=== PATIENT | male | born 1955 | race Caucasian/White ===

== ENCOUNTER → 2016-09-09 | Outpatient (CLI) | payer BC ==
--- NOTE | 2016-09-09 20:31 | MR ---
EXAMINATION TYPE: MR lumbar spine wo con DATE OF EXAM: 09/09/2016 8:19 PM COMPARISON: NONE HISTORY: Low back pain TECHNIQUE: Multiplanar, multisequence images of the lumbar spine were acquired. L1-L2: Central disc bulging with evidence of degenerative disc disease. There is mild left foraminal encroachment and [id number] right-sided foraminal encroachment. L2-L3: Degenerative disc disease with broad-based central and left paracentral disc protrusion. There is severe left-sided foraminal encroachment with probable nerve root impingement. Mild right-sided f oraminal encroachment. L3-L4: Degenerative disc disease with broad-based central disc bulging and mild effacement of thecal sac but no canal stenosis. Facet arthropathy and bilateral mild foraminal encroachment greater on the right. L4-L5: Severe degenerative disc disease with focal central broad-based disc herniation and moderate e ffacement of thecal sac. Moderate to severe bilateral foraminal encroachment greater on the right. Fa cet arthropathy contributes. L5-S1: Degenerative disc disease with broad-based central disc bulging. No canal stenosis. Bulging sl ightly greater paracentrally the left. Neural foramina remain patent facet arthropathy noted. Lumbar segments are intact. No paraspinal masses are identified. Conus medullaris has a normal appe arance. Scoliosis noted. IMPRESSION: 1. Multilevel degenerative disc disease and disc bulging with foraminal encroachment. Focal central b road-based disc herniation L4-L5 results in moderate canal stenosis and effacement of thecal sac and moderate to severe bilateral foraminal encroachment greater on the right. 2. Broad-based central and left paracentral disc protrusion L2-L3 with severe left-sided foraminal en croachment and probable nerve root impingement.
== END | disposition home or self-care (01) ==
LOC: RADMRIMAIN 19:36
PROVIDERS: ATTEND Orthopaedic Surgery Orthopaedic Surgery of the Spine
DX: M48.06 Spinal stenosis, lumbar region (principal); M51.26 Other intervertebral disc displacement, lumbar region
CPT/HCPCS: 72148

== ENCOUNTER → 2016-12-15 | Outpatient (CLI) | payer BC ==
--- NOTE | 2016-12-15 22:39 | MR ---
EXAMINATION TYPE: MR lumbar spine wo con DATE OF EXAM: 12/15/2016 9:40 PM COMPARISON: 09/09/2016 HISTORY: 61-year-old male with low back pain, radiates down both legs, fell out of bed TECHNIQUE: Multiplanar, multisequence images of the lumbar spine were acquired. FINDINGS: There is a dextroconvex scoliosis centered along the upper to mid lumbar spine. There is edematous M odic type I endplate change along the side of concavity at L2-L3 towards the left. Vertebral body heights are preserved. Degenerative grade 1 anterolisthesis at L4-L5 not significantly changed. Variable disc desiccation and bulging disks throughout. Moderate disc height loss especially at L4-L5 where fatty Modic type II endplate changes seen and also at L5-S1. No suspicious bone marrow replacement. Conus medullaris is normal. Facet arthropathy and ligamentum flavum thickening in the mid to lower lumbar spine with prominent do rsal epidural fat. At T12-L1, no spinal canal or neuroforaminal stenosis. At L1-L2, mild diffuse disc bulge with at least moderate right neuroforaminal stenosis, not significa ntly changed. Mild left neuroforaminal stenosis. Mild ventral impression on the thecal sac without si gnificant spinal canal stenosis. At L2-L3, there is diffuse disc bulge with hypertrophic facet arthropathy, ligamentum flavum thickeni ng, and prominent dorsal epidural fat. Changes result in similar moderate spinal canal stenosis with near complete CSF signal effacement, mild right and moderate to severe left neuroforaminal stenosis. This does not appear significantly changed. At L3-L4, there is diffuse disc bulge with ligamentum flavum thickening and facet arthropathy. Change s result in minimal bilateral inferior neuroforaminal narrowing without spinal canal stenosis. At L4-L5, grade when anterolisthesis with hypertrophic facet arthropathy, diffuse disc bulge with a b road-based posterior disc protrusion relatively similar prior. This impresses on the thecal sac witho ut significant spinal canal stenosis. There is similar moderate right and mild left neuroforaminal st enosis. At L5-S1, diffuse disc bulge with facet arthropathy. Changes result in mild left neuroforaminal steno sis without spinal canal stenosis. No prevertebral or paravertebral soft tissue abnormality. IMPRESSION: 1. Degenerative dextroconvex scoliosis centered along the upper to mid lumbar spine. There is edemato us Modic type I endplate change towards the left at L2-L3 which appears increased from 09/09/2016. 2. Similar degenerative grade 1 anterolisthesis at L4-L5. 3. Moderate degenerative disc disease throughout with hypertrophic facet arthropathy and ligamentum f lavum thickening. 4. There is similar moderate spinal canal stenosis at L2-L3 with near complete effacement of CSF sign al and moderate to severe left neuroforaminal stenosis at this level. 5. At L4-L5, there is similar moderate right neuroforaminal stenosis and mild on the left at L5-S1.
== END | disposition home or self-care (01) ==
LOC: RADMRIMAIN 20:36
PROVIDERS: ATTEND Internal Medicine
DX: M48.07 Spinal stenosis, lumbosacral region (principal); M99.73 Connective tissue and disc stenosis of intervertebral foramina of lumbar region; M99.74 Connective tissue and disc stenosis of intervertebral foramina of sacral region; M51.36 Other intervertebral disc degeneration, lumbar region; M46.97 Unspecified inflammatory spondylopathy, lumbosacral region; M24.28 Disorder of ligament, vertebrae; M41.86 Other forms of scoliosis, lumbar region
CPT/HCPCS: 72148

== ENCOUNTER → 2018-05-26 | Outpatient (CLI) | payer MEDICARE, BC ==
--- NOTE | 2018-05-26 07:21 | MR ---
EXAMINATION TYPE: MR lumbar spine wo con DATE OF EXAM: 05/26/2018 COMPARISON: MRI lumbar spine December 15, 2016. HISTORY: disc displacement lumbar region per order. Extreme low back pain, scoliosis, and spinal sten osis for 15 years causing pain into left thigh per patient. TECHNIQUE: Multiplanar, multisequence imaging of the lumbar spine is performed without IV contrast. FINDINGS: Survey images redemonstrate dextroconvex scoliosis centered in the mid to lower cervical sp ine with partial visualization of levoconvex scoliosis centered in the lower thoracic spine. Sagittal images of the lumbar spine show vertebral body heights to remain satisfactory. Multilevel disc desic cation is redemonstrated. There is moderate to advanced disc space narrowing with heterogeneous endpl ate changes L4-L5 level redemonstrated. Heterogeneous endplate changes left L2-L3 level with mild to moderate disc space narrowing is redemonstrated. There is moderate disc space narrowing L5-S1 level r edemonstrated. Posterior disc herniations are again seen at these levels on sagittal images. The conu s medullaris remains normal in position and signal ending mid L1 level. Axial images show the T12-L1 level to remain within normal limits. Axial images at the L1-L2 level show mild broad disc bulge and mild facet degenerative changes bilate rally. There is mild effacement of the anterior thecal sac. There is mild right-sided anterior inferi or neural foraminal narrowing. Left-sided neural foramen is patent. Axial images at the L2-L3 level show mild/moderate broad based posterior disc protrusion mildly effac ing anterior thecal sac with mild to moderate facet degenerative changes and ligamentum flavum hypert rophy mildly effacing posterior lateral thecal sac. There is mild to moderate bilateral neural forami nal narrowing, left greater than right redemonstrated. Axial images at the L3-L4 level show mild to moderate broad disc bulge. There is mild to minimal face t degenerative changes and ligament flavum hypertrophy. There is minimal effacement of the anterior t hecal sac. Bilateral neural foramina are patent. No significant change from prior. Axial images at the L4-L5 level show moderate facet degenerative changes bilaterally. There is broad disc bulge with central disc protrusion component effacing anterior thecal sac. There is moderate to severe right and mild to moderate left-sided neural foraminal narrowing. No significant change from p rior. Axial images at the L5-S1 level show broad-based central disc protrusion minimally effacing anterior thecal sac as there is increased epidural fat prominence. There is mild to borderline moderate facet degenerative changes bilaterally. There is stable mild left-sided neural foraminal narrowing. Right-s ided neural foramen is patent. No significant change from prior. No suspicious retroperitoneal findings are seen. IMPRESSION: Redemonstration of scoliosis and multilevel degenerative changes most prominent at L2-L3 and L4-L5 levels with further details as noted above. No significant change or progression from most recent MRI noted
== END ==
LOC: RADMRIMAIN 06:08
PROVIDERS: ATTEND Internal Medicine
DX: M47.817 Spondylosis without myelopathy or radiculopathy, lumbosacral region (principal); M99.74 Connective tissue and disc stenosis of intervertebral foramina of sacral region; M51.27 Other intervertebral disc displacement, lumbosacral region; M48.07 Spinal stenosis, lumbosacral region; M41.86 Other forms of scoliosis, lumbar region
CPT/HCPCS: 72148

== ENCOUNTER → 2018-07-23 | Outpatient (CLI) | payer MEDICARE, BC ==
--- NOTE | 2018-07-23 17:37 | CT ---
EXAMINATION TYPE: CT ChestAbdPelvis w con DATE OF EXAM: 07/23/2018 COMPARISON: None HISTORY: abnormal weight loss. Hx heart disease, HTN, COPD CT DLP: 1233 mGycm. Automated Exposure Control for Dose Reduction was Utilized. CONTRAST: CT scan of the thorax, abdomen and pelvis is performed with IV Contrast, patient injected with 100 mL of Isovue 300. FINDINGS: LUNGS: The lungs are grossly clear, there is no concerning parenchymal mass or nodule identified. T here is no pleural effusion or pneumothorax seen. The tracheobronchial tree is patent. MEDIASTINUM: There are no greater than 1 cm hilar or mediastinal lymph nodes. No cardiomegaly or pe ricardial effusion is seen. There is suspected coronary artery stent in the RCA distribution. There is calcified plaque proximal LAD axial image 29, the findings consistent with underlying coronary art марина disease. ASD repair device noted axial image 34. OTHER: Small degree of bilateral retroareolar gynecomastia is noted. LIVER/GB: No significant abnormality is appreciated. PANCREAS: No significant abnormality is seen. SPLEEN: No significant abnormality is seen. ADRENALS: No significant abnormality is seen. KIDNEYS: No significant abnormality is seen. BOWEL: [place] contrast does not reach level of ileum making evaluation of distal bowel suboptimal. No suspicious small or large bowel dilatation is however seen GENITAL ORGANS: No gross abnormality seen. LYMPH NODES: No greater than 1cm abdominal or pelvic lymph nodes are appreciated. OSSEOUS STRUCTURES: Metallic hardware from reverse right shoulder arthroplasty is noted causing strea k artifact limiting evaluation at this level. Thoracolumbar spine shows underlying scoliosis. There i s moderate disc space narrowing L4-L5 level OTHER: There is mild/moderate calcified plaque seen in ectatic infrarenal abdominal aorta.. IMPRESSION: No worrisome mass or adenopathy is seen to suggest neoplasm.
== END | disposition home or self-care (01) ==
LOC: RADCTMAIN 14:24
PROVIDERS: ATTEND Internal Medicine
DX: R63.4 Abnormal weight loss (principal)
CPT/HCPCS: 82565; 84520; 71260; 74177; 36415; Q9967

== ENCOUNTER → 2019-02-25 | Outpatient (CLI) | payer MEDICARE, OTHER ==
--- NOTE | 2019-02-26 21:17 | MR ---
EXAMINATION TYPE: MR thoracic spine wo con DATE OF EXAM: 02/25/2019 COMPARISON: MRI of the lumbar spine dated 05/26/2018 HISTORY: Pain in thoracic spine TECHNIQUE: Multiplanar, multisequence images of the thoracic spine were acquired without intravenous contrast pe r department protocol. FINDINGS: There is a mild levoscoliosis of the thoracic spine. The thoracic spinal cord appears withi n normal limits. There is epidural lipomatosis seen of the thoracic level. At T10 there is predominantly endplate T1/T2 hypointensity. At T11 there is T2 hyperintensity that is focal however there is no corresponding T1 hypointensity to suggest bone marrow edema and there is m otion artifact on the axial images suggesting that this is artifactual. Multilevel disc desiccation i s seen. Multilevel anterior osteophytes and mild facet arthropathy are also present. At T1-T2 there is disc desiccation without spinal canal stenosis nor neural foraminal narrowing. At T2-T3 there is a small right eccentric disc bulge without spinal canal stenosis nor neural foramin al narrowing. At T3-T4 there is a small right paracentral disc herniation without spinal canal stenosis nor signifi cant neural foraminal narrowing. At T4-T5 there is disc desiccation without spinal canal stenosis or neural foraminal narrowing. At T5-T6 there is also disc desiccation without spinal canal stenosis or neural foraminal narrowing. At T6-T7 there is a very small central disc herniation without spinal canal stenosis nor neural justyna inal narrowing. At T7-T8 there is disc desiccation without spinal canal stenosis nor neural foraminal narrowing. At T8-T9 there is disc desiccation without spinal canal stenosis nor neural foraminal narrowing. At T9-T10 there is a small right paracentral disc herniation creating mild right neural foraminal odilia rowing. No left neural foraminal narrowing or spinal canal stenosis. At T10-T11 there is a small right paracentral disc herniation without spinal canal stenosis nor neura l foraminal narrowing. At T11-T12 there is a broad-based disc bulge and minimal facet arthropathy without spinal canal steno sis nor neural foraminal narrowing. IMPRESSION: 1. Multilevel mild degenerative disc disease of the thoracic spine with discogenic endplate changes a t T10. No vertebral body height loss or malalignment. 2. There appears to be artifact at the T11 vertebral body simulating bone marrow edema. There is foca l tenderness nuclear medicine bone scan could be performed. 3. Small right paracentral disc herniations at T3-T4, T9-T10 and T10-T11 without spinal canal stenosi s. There is mild right neural foraminal narrowing at T9-T10. 4. Very small central disc herniation at T6-T7 without spinal canal stenosis.
== END ==
LOC: RADMRIMAIN 13:29
PROVIDERS: ATTEND Internal Medicine
DX: M48.04 Spinal stenosis, thoracic region (principal); M51.24 Other intervertebral disc displacement, thoracic region; M51.34 Other intervertebral disc degeneration, thoracic region
CPT/HCPCS: 72146

== ENCOUNTER → 2019-08-18 | Outpatient (CLI) | payer MEDICARE, OTHER ==
--- NOTE | 2019-08-19 02:33 | MR ---
EXAMINATION TYPE: MR thoracic spine wo con DATE OF EXAM: 08/18/2019 COMPARISON: 02/17/2019 HISTORY: Chronic mid back pain Multiplanar multiecho imaging of the thoracic spine was performed with no contrast. There is a mild thoracic levoscoliosis. There is degenerative disc space narrowing throughout the tho racic spine. There is no compression significant deformity. There is 10% anterior wedging of T8 verte bra that appears old. Thoracic spinal cord has normal signal pattern. There is no sign of thoracic sp inal stenosis. Posterior elements are intact. There is no thoracic paraspinal mass. IMPRESSION: Mild levoscoliosis. Mild multilevel spondylotic changes throughout the thoracic spine with disc space narrowing and endplate spur formation. Spine appears not significantly different than last exam. No acute fracture seen. Stable mild anterior wedging of T8 vertebra. No spinal stenosis.
== END ==
LOC: RADMRIMAIN 16:02
PROVIDERS: ATTEND Internal Medicine
DX: M48.04 Spinal stenosis, thoracic region (principal); M48.54XA Collapsed vertebra, not elsewhere classified, thoracic region, initial encounter for fracture; M41.84 Other forms of scoliosis, thoracic region; M47.814 Spondylosis without myelopathy or radiculopathy, thoracic region
CPT/HCPCS: 72146

== ENCOUNTER → 2020-02-06 | Outpatient (CLI) | payer MEDICARE, OTHER ==
--- NOTE | 2020-02-07 16:13 | MR ---
EXAMINATION TYPE: MR tspine/lspine wo con DATE OF EXAM: 02/06/2020 COMPARISON: MR thoracic spine 08/18/2019, MR lumbar spine 05/26/2018 HISTORY: Degeneration of lumbar spine, pain in thoracic spine TECHNIQUE: Multiplanar, multisequence imaging of the thoracic and lumbar spine is performed without I V contrast. FINDINGS: Thoracic spine MRI: There is a spinal curvature. Multilevel spondylosis is again seen. There is no ev ident spinal stenosis or significant foraminal encroachment. Thoracic cord signal is maintained. Ther e is multilevel spondylosis. Endplate discogenic marrow signal changes are present, loss of disc heig ht signal present at the intervertebral levels. Small posterior disc bulges are again noted causing m inimal anterior mass effect on the thecal sac at multiple levels. Multilevel Schmorl's node formation . IMPRESSION: Stable degenerative disc disease, spinal curvature. Lumbar spine MRI: There is multilevel spondylosis as on prior exam. Loss of disc height and signal is present with associated vacuum phenomenon L4-5, L5-S1, L2-3. Multilevel spondylosis with endplate di scogenic marrow signal changes are again seen. The conus is at T12-L1 shows an unremarkable appearanc e. L5-S1 shows a posterior disc herniation causing anterior mass effect on the thecal sac and likely con tact with the proximal S1 nerve root left greater than right. No significant spinal stenosis or justyna inal encroachment. L4-5 shows a posterior central disc herniation similar to prior exam causing anterior mass effect on the thecal sac. There is facet arthropathy change. Circumferential extension endplate disc complex re sults in foraminal encroachment bilaterally. L3-4 shows a stable appearance with posterior broad-based disc bulge. No significant central stenosis or foraminal encroachment. L2-3: Posterior broad-based disc bulge causes anterior mass effect on the thecal sac, no significant spinal stenosis. Hypertrophic changes are present at the facets. Foraminal encroachment is present on the left, there is lateral extension endplate disc complex. L1-2: Posterior broad-based disc bulge causes mild anterior mass effect on the thecal sac. No signifi cant foraminal encroachment or central stenosis. IMPRESSION: Stable degenerative disc disease, disc herniations, facet arthropathy. Scoliosis. IMPRESSION: Negative MRI of the lumbar spine.
== END | disposition home or self-care (01) ==
LOC: RADMRIMAIN 19:09
PROVIDERS: ATTEND Internal Medicine
DX: M51.36 Other intervertebral disc degeneration, lumbar region (principal)
CPT/HCPCS: 72146; 72148

== ENCOUNTER 2021-09-03 01:32 | Emergency (ER) | payer MEDICARE ==
[2021-09-03 01:45] VITALS: RESP 18; TEMP 98.7
[2021-09-03 02:04] LABS: Glucose,Whole Blood 88 mg/dL (75-99)
[2021-09-03 02:13] LABS: Basophils # (A) 0.1 k/uL (0-0.2); Basophils % (A) 1 %; Eosinophils # (A) 0.4 k/uL (0-0.7); Eosinophils % (A) 6 %; HCT 42.5 % (39.0-53.0); HGB 13.4 gm/dL (13.0-17.5); Hypochromasia Slight; Lymphocytes % (A) 30 %; MCH 29.3 pg (25.0-35.0); MCHC 31.6 g/dL (31.0-37.0); MCV 92.6 fL (80.0-100.0); Mean Platelet Volume 7.3; Monocytes # (A) 0.4 k/uL (0-1.0); Monocytes % (A) 6 %; Neutrophils # (A) 3.5 k/uL (1.3-7.7); Neutrophils % (A) 54 %; Platelet Count 227 k/uL (150-450); RBC 4.59 m/uL (4.30-5.90); RDW 14.4 % (11.5-15.5); WBC 6.6 k/uL (3.8-10.6)
[2021-09-03 02:23] LABS: Albumin 4.5 g/dL (3.5-5.0); Potassium 4.3 mmol/L (3.5-5.1); Total Bilirubin 0.7 mg/dL (0.2-1.3); Total Protein 7.2 g/dL (6.3-8.2)
--- NOTE | 2021-09-03 02:26 | CT ---
EXAMINATION TYPE: CT brain wo con for TPA DATE OF EXAM: 09/03/2021 COMPARISON: 04/30/2011 HISTORY: AMS CT DLP: 1121.40 mGycm Automated exposure control for dose reduction was used. There is some cerebral atrophy. There is no mass effect or midline shift. There is no sign of intracr anial hemorrhage. Calvarium is intact. Skull base is intact. IMPRESSION: Mild atrophy. No acute intracranial abnormality.
--- NOTE | 2021-09-03 02:29 | XR ---
EXAMINATION TYPE: XR chest 1V DATE OF EXAM: 09/03/2021 COMPARISON: 10/10/2012 HISTORY: Altered mental status TECHNIQUE: Single view FINDINGS: There is no heart failure nor confluent pneumonic infiltrate. Costophrenic angles are clear . There is right shoulder prosthesis. Bony thorax is intact. IMPRESSION: No active cardiopulmonary disease. There is clearing of the interstitial pulmonary densit y compared to last exam.
[2021-09-03 02:31] LABS: Partial Thromboplastin Time 23.1 sec (22.0-30.0); Prothrombin Time 10.7 sec (9.0-12.0)
--- NOTE | 2021-09-03 03:03 | ED ---
General Adult HPI - General Chief complaint: Neuro Symptoms/Deficit Stated complaint: r/o TIA Time Seen by Provider: 09/03/21 01:48 Source: EMS Mode of arrival: EMS Limitations: no limitations - History of Present Illness Initial comments: This patient is a 65-year-old man brought to have evaluation after he became lost while driving. The patient could not recall where he was attempting to go nor why he was in the vehicle. He denies any headache, neurologic symptoms, chest pain or dyspnea. No fever or chills. The patient states that he feels pretty much as his usual self now, but is not able to recall why he was in the car where he was going -: hour(s) Severity scale (1-10): 0 Consistency: now resolved Improves with: none Worsens with: none Associated Symptoms: confusion Treatments Prior to Arrival: none - Related Data Home Medications Medication Instructions Recorded Confirmed ALPRAZolam [Xanax] 2 mg PO TID PRN 12/19/14 02/01/15 Ammonium Lactate Cream [Ammonium 1 applic TOPICAL DAILY 12/19/14 02/01/15 Lactate] Aspirin 81 mg PO DAILY 12/19/14 02/01/15 Clobetasol Propionate/Emoll 1 applic TOPICAL DAILY 12/19/14 02/01/15 [Temovate Emollient 0.05% Crm] Clopidogrel [Plavix] 75 mg PO DAILY 12/19/14 02/01/15 Esomeprazole Magnesium [NexIUM] 40 mg PO DAILY 12/19/14 02/01/15 HYDROcodone/APAP 10-325MG [[place] 1 each PO Q6H PRN 12/19/14 02/01/15 10] Ranolazine [Ranexa] 500 mg PO BID 12/19/14 02/01/15 Rosuvastatin Calcium [Crestor] 20 mg PO HS 12/19/14 02/01/15 Venlafaxine HCl ER [Effexor Xr] 150 mg PO DAILY 12/19/14 02/01/15 carvediloL [Coreg] 3.125 mg PO BID 12/19/14 02/01/15 lamoTRIgine [LaMICtal] 200 mg PO DAILY 12/19/14 02/01/15 lisinopriL [Zestril] 10 mg PO DAILY 12/19/14 02/01/15 Celecoxib [CeleBREX] 200 mg PO DAILY 12/25/14 02/01/15 Methocarbamol [Robaxin-750] 750 mg PO TID PRN 01/10/15 02/01/15 Nitroglycerin Sl Tabs [Nitrostat] 0.4 mg SUBLINGUAL DIRECTED PRN 01/10/15 02/01/15 Tamsulosin HCl [Flomax] 0.4 mg PO DAILY 01/30/15 02/01/15 Allergies Allergy/AdvReac Type Severity Reaction Status Date / Time No Known Allergies Allergy Verified 01/30/15 12:52 Review of Systems ROS Statement: Those systems with pertinent positive or pertinent negative responses have been documented in the HPI. ROS Other: All systems not noted in ROS Statement are negative. Constitutional: Denies: fever, chills, weakness Eyes: Denies: eye pain, vision change ENT: Denies: ear pain, congestion Respiratory: Denies: cough, dyspnea Cardiovascular: Denies: chest pain, palpitations, syncope Gastrointestinal: Denies: abdominal pain, vomiting, diarrhea Genitourinary: Denies: dysuria Musculoskeletal: Denies: back pain Skin: Denies: rash Neurological: Reports: as per HPI, confusion. Denies: headache, weakness, numbness, paresthesias Past Medical History Past Medical History: Coronary Artery Disease (CAD), Cancer, Heart Failure, COPD, CVA/TIA, GERD/Reflux, Hyperlipidemia, Hypertension, Myocardial Infarction ([place]), Musculoskeletal Disorder Additional Past Medical History / Comment(s): melanoma Last Myocardial Infarction Date:: 2012 History of Any Multi-Drug Resistant Organisms: None Reported Past Surgical History: Appendectomy, Heart Catheterization, Heart Catheterization With Stent, Tonsillectomy Past Anesthesia/Blood Transfusion Reactions: No Reported Reaction Date of Last Stent Placement:: 2012 Smoking Status: Current every day smoker Past Alcohol Use History: Rare Past Drug Use History: None Reported - Past Family History Mother Additional Family Medical History / Comment(s): Alzheimers disease General Exam General appearance: alert, in no apparent distress Head exam: Present: atraumatic, normocephalic Eye exam: Present: normal appearance. Absent: scleral icterus, conjunctival injection Neck exam: Present: normal inspection, full ROM. Absent: tenderness, meningismus Respiratory exam: Present: normal lung sounds bilaterally. Absent: respiratory distress, wheezes, rales, rhonchi, stridor Cardiovascular Exam: Present: regular rate, normal rhythm, normal heart sounds. Absent: systolic murmur, diastolic murmur, rubs, gallop GI/Abdominal exam: Present: soft. Absent: distended, tenderness, guarding, rebound, rigid, mass Extremities exam: Present: normal inspection, normal capillary refill. Absent: pedal edema, calf tenderness Back exam: Present: normal inspection. Absent: CVA tenderness (R), CVA tenderness (L) Neurological exam: Present: alert, oriented X3, CN II-XII intact. Absent: motor sensory deficit Psychiatric exam: Absent: depressed, suicidal ideation Skin exam: Present: warm, dry, intact, normal color. Absent: rash Course Vital Signs 09/03/21 09/03/21 01:33 03:53 Temperature 98.7 F Pulse Rate 82 84 Respiratory 18 18 Rate Blood Pressure 177/99 140/84 O2 Sat by Pulse 99 96 Oximetry Medical Decision Making - Medical Decision Making Patient is 65-year-old man here for evaluation after what is consistent with transient global ischemia. The patient does appear to be at his baseline now. His neurologic exam unremarkable. He would like to go home. Discussed appropriate further care and follow-up. - Lab Data Result diagrams: 09/03/21 01:49 09/03/21 01:49 Lab Results 09/03/21 09/03/21 09/03/21 Range/Units 01:49 01:49 01:49 WBC 6.6 (3.8-10.6) k/uL RBC 4.59 (4.30-5.90) m/uL Hgb 13.4 (13.0-17.5) gm/dL Hct 42.5 (39.0-53.0) % MCV 92.6 (80.0-100.0) fL MCH 29.3 (25.0-35.0) pg MCHC 31.6 (31.0-37.0) g/dL RDW 14.4 (11.5-15.5) % Plt Count 227 (150-450) k/uL MPV 7.3 Neutrophils % 54 % Lymphocytes % 30 % Monocytes % 6 % Eosinophils % 6 % Basophils % 1 % Neutrophils # 3.5 (1.3-7.7) k/uL Lymphocytes # 2.0 (1.0-4.8) k/uL Monocytes # 0.4 (0-1.0) k/uL Eosinophils # 0.4 (0-0.7) k/uL Basophils # 0.1 (0-0.2) k/uL Hypochromasia Slight PT 10.7 (9.0-12.0) sec INR 1.0 (<1.2) APTT 23.1 (22.0-30.0) sec Sodium 138 (137-145) mmol/L Potassium 4.3 (3.5-5.1) mmol/L Chloride 107 (98-107) mmol/L Carbon Dioxide 20 L (22-30) mmol/L Anion Gap 11 mmol/L BUN 21 H (9-20) mg/dL Creatinine 1.05 (0.66-1.25) mg/dL Est GFR (CKD-EPI)AfAm 88 (>60 ml/min/1.73 sqM) Est GFR (CKD-EPI)NonAf 76 (>60 ml/min/1.73 sqM) Glucose 95 (74-99) mg/dL POC Glucose (mg/dL) (75-99) mg/dL POC Glu Fire Prevention Engineer ID Calcium 10.0 (8.4-10.2) mg/dL Total Bilirubin 0.7 (0.2-1.3) mg/dL AST 17 (17-59) U/L ALT 10 (4-49) U/L Alkaline Phosphatase 64 (38-126) U/L Troponin I (0.000-0.034) ng/mL Total Protein 7.2 (6.3-8.2) g/dL Albumin 4.5 (3.5-5.0) g/dL 09/03/21 09/03/21 Range/Units 01:49 02:03 WBC (3.8-10.6) k/uL RBC (4.30-5.90) m/uL Hgb (13.0-17.5) gm/dL Hct (39.0-53.0) % MCV (80.0-100.0) fL MCH (25.0-35.0) pg MCHC (31.0-37.0) g/dL RDW (11.5-15.5) % Plt Count (150-450) k/uL MPV Neutrophils % % Lymphocytes % % Monocytes % % Eosinophils % % Basophils % % Neutrophils # (1.3-7.7) k/uL Lymphocytes # (1.0-4.8) k/uL Monocytes # (0-1.0) k/uL Eosinophils # (0-0.7) k/uL Basophils # (0-0.2) k/uL Hypochromasia PT (9.0-12.0) sec INR (<1.2) APTT (22.0-30.0) sec Sodium (137-145) mmol/L Potassium (3.5-5.1) mmol/L Chloride (98-107) mmol/L Carbon Dioxide (22-30) mmol/L Anion Gap mmol/L BUN (9-20) mg/dL Creatinine (0.66-1.25) mg/dL Est GFR (CKD-EPI)AfAm (>60 ml/min/1.73 sqM) Est GFR (CKD-EPI)NonAf (>60 ml/min/1.73 sqM) Glucose (74-99) mg/dL POC Glucose (mg/dL) 88 (75-99) mg/dL POC Glu Fire Prevention Engineer ID Willing, Yu Calcium (8.4-10.2) mg/dL Total Bilirubin (0.2-1.3) mg/dL AST (17-59) U/L ALT (4-49) U/L Alkaline Phosphatase (38-126) U/L Troponin I <0.012 (0.000-0.034) ng/mL Total Protein (6.3-8.2) g/dL Albumin (3.5-5.0) g/dL Disposition Clinical Impression: TGA (transient global amnesia) Disposition: HOME SELF-CARE Condition: Good Instructions (If sedation given, give patient instructions): Transient Global Amnesia (ED) Is patient prescribed a controlled substance at d/c from ED?: No Referrals: Subha Looney MD [Primary Care Provider] - 1-2 days
[2021-09-03 03:54] VITALS: BP 140/84; PULSE 84
== END 2021-09-03 04:20 | disposition home or self-care (01) ==
LOC: EC 01:32
DX: G45.4 Transient global amnesia (principal); F17.200 Nicotine dependence, unspecified, uncomplicated; I10 Essential (primary) hypertension; I25.2 Old myocardial infarction; E78.5 Hyperlipidemia, unspecified; I11.0 Hypertensive heart disease with heart failure; I50.9 Heart failure, unspecified; K21.9 Gastro-esophageal reflux disease without esophagitis; Z86.73 Personal history of transient ischemic attack (TIA), and cerebral infarction without residual deficits; J44.9 Chronic obstructive pulmonary disease, unspecified; I25.10 Atherosclerotic heart disease of native coronary artery without angina pectoris; Z79.899 Other long term (current) drug therapy; Z79.82 Long term (current) use of aspirin; Z79.02 Long term (current) use of antithrombotics/antiplatelets
CPT/HCPCS: 36415; 70450; 71045; 80053; 84484; 85025; 85610; 85730; 93005; 99285

== ENCOUNTER → 2021-11-14 | Outpatient (CLI) | payer MEDICARE ==
[2021-11-14 14:31] VITALS: BP 110/70; PULSE 56; RESP 18; TEMP 98.3
--- NOTE | 2021-11-14 14:35 | P.CON ---
Consult Note - . Consult date: 11/14/21 Assessment/Plan:: HISTORY OF PRESENT ILLNESS: 65 yr old male as a referral from Dr Looney presents today with lower back pain secondary to spondylosis, disc bulges, neuroforaminal stenoses, DDD, scoliosis and facet arthropathy for evaluation. States his pain is in his lower back, localized to the center with occasional radiation of pain to the left paraspinal muscles. There intensity 6 out of 10, tight, pressure-type sensation. It is exacerbated with bending, standing, walking and laying supine. It is relieved with medications (Oxycodone IR 10mg QID prn from Dr Silvestre, Tylenol OTC and Zanaflex), injections, ice, heat, physical therapy on 09/21, massage that ended 09/21, chiropractic treatments weekly but ended 2 months ago due to a plateau in progress, use of a reclining chair, hot showers and rest. Past Medical History: Coronary Artery Disease (CAD), [place] x 4 (last in 2012), Melanoma with Resection, CVA/TIA, GERD/Reflux, Hearing Disorder / Deafness, Hyperlipidemia, Hypertension, Musculoskeletal Disorder, Sleep Apnea/CPAP/BIPAP, Vascular Disorder, MDD, Anxiety Past Surgical History: Adenoidectomy, Heart Catheterization With Stent x 17, Tonsillectomy, LESI x 5, Nerve Blocks x 6. Social History: Current tobaco user, no ETOH or illicit drug use. Family History: Mother- HTN, Alzheimers disease All: NKDA Meds: See list REVIEW OF ORGAN SYSTEMS: CONSTITUTIONAL: No fevers or chills. No recent weight loss. HEENT: No visual acuity loss, eye pain, difficulties with hearing. No nosebleeds. No difficulty swallowing. RESPIRATORY: Denies any troubles with breathing or dyspnea on exertion. CARDIOVASCULAR: Denies any chest pain, palpitations, or recent heart attacks. GASTROINTESTINAL: Denies fatty food intolerance. Has change in bowel habits and gas bloat. GENITOURINARY: Denies any blood in urine. Has increased urinary frequency. NEUROLOGICAL: + numbness and tingling along the distal extremities. No seizure disorders or headaches. MUSCULOSKELETAL: + back pain SKIN: No skin cancer. No rash. PSYCHIATRIC: Denies current depression or suicidal thoughts. ENDOCRINE: Denies current thyroid disorders. Denies any blood sugar glucose intolerance. HEME/LYMPHATIC: Denies any lumps and bumps around the neck. History of deep venous thrombosis. ALLERGY/IMMUNOLOGY: No immunoglobulin therapy. No immune deficiencies. BREAST: Denies current breast lumps, pain or nipple discharge. Physical Examinations : Constitutional : Cooperative , not in acute distress . Appears older than stated age. HEENT: Neck supple. No Lymphadenopathy. Normal thyroid size . Eyes no ptosis , no icterus, no photophobia . Hearing intact. Normal oropharynx. No Thrush. Respiratory : Chest clear to auscultations bilaterally. No wheezing. No rhonchi. Cardiovascular : Regular rate and rhythm , S1 / S2. No S3 . No S4. Gastrointestinal : Abdomen soft. No tenderness. Bowel sounds x 4. No organomegaly . Genitourinary : Deferred. Neurologic : Cranial nerve II to XII intact. No focal neurological deficits. Psychiatric : alert & oriented x 3. Matching mood & appropriate affect. Judgment & insight intact. Lymphatic No Lymphadenopathy. Musculoskeletal : Cervical Spine Motor strength in the deltoid and biceps: Normal right side. Normal Left side Motor strength biceps and the wrist extensors: Normal right side . Normal left side Motor strength in the triceps muscle: Normal right side. Normal left side Deep tendon reflexes: Normal at the biceps. Normal at Brachioradialis. Normal at triceps Cervical facet loading test: positive bilaterally Spurling test: positive bilaterally Neck distraction test: positive bilaterally Ibis sign: positive bilaterally Lumbar spine Motor strength lower extremities ,thigh and legs 5/5 Right side , 5/5 Left side Deep tendon reflexes : Normal Knee Jerk. Normal Ankle Jerk Vertebral body tenderness over L3, L4, L5, S1 Lumbar facet Loading Test: positive Right / positive Left Range of motion of the lumbar spine Flexion 45 degrees, extension 10 degrees Straight Leg Raise test: Left/ Right positive at 30 degrees [place] test: positive right / positive left. Severe tenderness over the Sacroiliac joint on the Right / Left sides [place] test: positive bilaterally Seated flexion test: positive bilaterally. Imaging: MRI of the thoracic and lumbar spine without contrast from 02/06/20 reviewed. Assessment/ Plan : Pt was disinterested in procedures, including but not limited to LESA or nerve blocks, stating that he's tried them before and has only obtained temporary pain relief. Pt was more interested in stronger medications to relieve his pain. Pt stated he is [facility] at [facility] and a pain clinic in [place] and will seek additional opinions for pain management there. All questions answered. I have spent greater than 50 minutes on patient care today. Dr Moeller was available by phone for the evaluation of this patient. The time was used to review the medical records including relevant urine studies and Prescription history (MAPs), review of the available imaging, evaluation and examination of the patient, coordination of care with the medical staff and if applicable referring physicians, as well as creation of the medical record PQRS Measure Charge Sheet Mode of Arrival: Ambulatory - Pain Location Lower Back Non-Pharmacological Interventions: Heat, Sitting Pharmacological Interventions: Scheduled Medication PQRS Narrative: Smoking Status Current every day smoker Blood Pressure 110/70 Pain Intensity [Lower Back] 6 Scale Used Numeric (1 - 10) Hx Alcohol Use (MH) Yes Home Medications: Ambulatory Orders ALPRAZolam [Xanax] 2 mg PO TID PRN 12/19/14 Ammonium Lactate Cream [Ammonium Lactate] 1 applic TOPICAL DAILY 12/19/14 Aspirin 81 mg PO DAILY 12/19/14 Clobetasol Propionate/Emoll [Temovate Emollient 0.05% Crm] 1 applic TOPICAL DAILY 12/19/14 Clopidogrel [Plavix] 75 mg PO DAILY 12/19/14 Esomeprazole Magnesium [NexIUM] 40 mg PO DAILY 12/19/14 HYDROcodone/APAP 10-325MG [[place] 10] 1 each PO Q6H PRN 12/19/14 Ranolazine [Ranexa] 500 mg PO BID 12/19/14 Rosuvastatin Calcium [Crestor] 20 mg PO HS 12/19/14 Venlafaxine HCl ER [Effexor Xr] 150 mg PO DAILY 12/19/14 lamoTRIgine [LaMICtal] 200 mg PO DAILY 12/19/14 Celecoxib [CeleBREX] 200 mg PO DAILY 12/25/14 Methocarbamol [Robaxin-750] 750 mg PO TID PRN 01/10/15 Nitroglycerin Sl Tabs [Nitrostat] 0.4 mg SUBLINGUAL DIRECTED PRN 01/10/15 Tamsulosin HCl [Flomax] 0.4 mg PO DAILY 01/30/15 Carvedilol [Coreg] 12.5 mg PO HS 11/05/21 Isosorbide Mononitrate [Isosorbide Mononitrate ER] 30 mg PO DAILY 11/05/21 Omeprazole 20 mg PO DAILY 11/05/21 carvediloL [Coreg] 6.25 mg PO QAM 11/05/21 lisinopriL [Prinivil] 20 mg PO BID 11/05/21 oxyCODONE HCL [oxyCODONE HCL (IR)] 10 mg PO QID 11/05/21 traZODone HCL 150 mg PO HS 11/05/21
== END | disposition home or self-care (01) ==
LOC: PNWHC3 13:35
PROVIDERS: ATTEND Specialist
DX: M51.9 Unspecified thoracic, thoracolumbar and lumbosacral intervertebral disc disorder (principal)
CPT/HCPCS: 99211

== ENCOUNTER → 2023-08-07 | Outpatient (CLI) | payer MEDICARE ==
--- NOTE | 2023-08-08 07:10 | MR ---
EXAMINATION TYPE: MR tspine/lspine wo con DATE OF EXAM: 08/07/2023 COMPARISON: Prior MRI thoracic and lumbar spine February 06, 2020 HISTORY: Mid and low back pain, please compare to prior MRI. TECHNIQUE: Multiplanar, multisequence imaging of the thoracic and lumbar spine are spine is performed without IV contrast. FINDINGS: T-SPINE: Slight levoconvex scoliosis centered in the lower thoracic spine redemonstrated with more prominent d extroconvex scoliosis centered in the lumbar spine again seen. Spinal cord shows which demonstrates normal caliber and signal as it courses the thoracic spine. Mild anterior wedging in the lower thorac ic spine is redemonstrated.. There is [id number] multilevel spurring and disc space narrowing w ith heterogeneous Modic type II endplate changes at this level redemonstrated. Multilevel tiny poste rior disc herniations mildly effaces the anterior thecal sac are seen for reference T2-T3 and T3-T4 l evel sagittal image 10 and T7-T8 and T8-T9 levels sagittal image 9. Review of the axial images shows additional large disc herniation. Visualized thorax and upper abdomen are grossly unremarkable. IMPRESSION: Scoliosis with multilevel degenerative changes in the thoracic spine redemonstrated. No significant change from prior MRI noted. L-SPINE: Dextroconvex scoliosis centered at L3 level is redemonstrated. Sagittal images of the lumbar spine sh ow vertebral body heights to remain satisfactory. There is multilevel disc desiccation. There is mode rate disc space narrowing left L2-L3 and right L4-L5 levels redemonstrated. Heterogeneous Modic type I and type II endplate changes again seen with mild to moderate multilevel spurring redemonstrated. T he conus medullaris remains normal in position and signal ending at mid L1 level. Axial images at T12-L1 level show new mild broad disc bulge minimally effaces the anterior thecal sac along with mild facet arthropathy bilaterally. Bilateral neural foramen are patent. Axial images at L1-L2 level show persistent mild broad disc bulge mildly effacing the anterior thecal sac along with more prominent [id number] left-sided facet arthropathy and ligamentum flavum hy pertrophy minimally effacing the lateral thecal sac. There is asymmetric moderate left-sided neural f oraminal narrowing. Axial images at L2-L3 level mild broad disc bulge mildly effacing the anterior thecal sac along with moderate facet arthropathy and ligamentum flavum hypertrophy effacing the left posterior lateral thec al sac. There is mild/moderate left-sided neural foraminal narrowing redemonstrated. Axial images at L3-L4 level [id number] broad disc bulge minimally effaces the anterior thecal s ac along with [id number] facet arthropathy bilaterally. There is some effacement of the postero lateral thecal sac. There is moderate bilateral neural foraminal narrowing seen. Findings more promin ent from prior MRI. Axial images at L4-L5 level show posterior annular tear and central disc herniation effacing the ante rior thecal sac similar to prior. There is moderate facet arthropathy bilaterally. There is moderate right greater than left bilateral neural foraminal narrowing redemonstrated. No Significant change fr om prior. Axial images at L5-S1 level shows persistent left paracentral disc protrusion and mild facet arthropa thy. Bilateral neural foramina are patent. No significant change from prior. Paraspinal muscle bulk is preserved. IMPRESSION: Stable scoliosis. Multilevel degenerative changes in the lumbar spine as detailed above. Some areas of interval degenerative progression noted as discussed above.
== END | disposition home or self-care (01) ==
LOC: RADMRIMAIN 17:17
PROVIDERS: ATTEND Orthopaedic Surgery
DX: M51.36 Other intervertebral disc degeneration, lumbar region (principal); M47.814 Spondylosis without myelopathy or radiculopathy, thoracic region; M47.816 Spondylosis without myelopathy or radiculopathy, lumbar region; M41.84 Other forms of scoliosis, thoracic region
CPT/HCPCS: 72146; 72148

== ENCOUNTER → 2023-09-28 | Outpatient (CLI) | payer MEDICARE ==
[2023-09-28 08:43] VITALS: BP 187/99; PULSE 65; RESP 16; TEMP 97.3
--- NOTE | 2023-09-28 14:50 | P.PAINPG ---
PQRS Measure Charge Sheet Comment: HISTORY OF PRESENT ILLNESS: A 67 yr old male presents today with lower back pain secondary to spondylosis, disc bulges, neuroforaminal stenoses, DDD, scoliosis and facet arthropathy for evaluation. Pt states his pain is in his lower back, 6/10 in intensity, predominantly axial, achy in character, localized to the center with occasional radiation of pain to the left paraspinal muscles. Pain is exacerbated with bending, standing, walking and laying supine. It is relieved with medications, injections, ice, heat, physical therapy on 09/21, massage that ended 09/21, chiropractic treatments weekly but ended 2 months ago due to a plateau in progress, use of a reclining chair, hot showers and rest. Oswestry axial pain score of 36. Interventional procedures include LESA L5-S1 (2014) Medications include Neurontin, Tyl, Excedrein, Voltaren gel REVIEW OF ORGAN SYSTEMS: CONSTITUTIONAL: No fevers or chills. No recent weight loss. HEENT: No visual acuity loss, eye pain, difficulties with hearing. No nosebleeds. No difficulty swallowing. RESPIRATORY: Denies any troubles with breathing or dyspnea on exertion. CARDIOVASCULAR: Denies any chest pain, palpitations, or recent heart attacks. GASTROINTESTINAL: Denies fatty food intolerance. Has change in bowel habits and gas bloat. GENITOURINARY: Denies any blood in urine. Has increased urinary frequency. NEUROLOGICAL: + numbness and tingling along the distal extremities. No seizure disorders or headaches. MUSCULOSKELETAL: + back pain SKIN: No skin cancer. No rash. PSYCHIATRIC: Denies current depression or suicidal thoughts. ENDOCRINE: Denies current thyroid disorders. Denies any blood sugar glucose intolerance. HEME/LYMPHATIC: Denies any lumps and bumps around the neck. History of deep venous thrombosis. ALLERGY/IMMUNOLOGY: No immunoglobulin therapy. No immune deficiencies. BREAST: Denies current breast lumps, pain or nipple discharge. Physical Examinations : Constitutional : Cooperative , not in acute distress . Appears older than stated age. HEENT: Neck supple. No Lymphadenopathy. Normal thyroid size . Eyes no ptosis , no icterus, no photophobia . Hearing intact. Normal oropharynx. No Thrush. Respiratory : Chest clear to auscultations bilaterally. No wheezing. No rhonchi. Cardiovascular : Regular rate and rhythm , S1 / S2. No S3 . No S4. Gastrointestinal : Abdomen soft. No tenderness. Bowel sounds x 4. No organomegaly . Genitourinary : Deferred. Neurologic : Cranial nerve II to XII intact. No focal neurological deficits. Psychiatric : alert & oriented x 3. Matching mood & appropriate affect. Judgment & insight intact. Lymphatic No Lymphadenopathy. Musculoskeletal : Cervical Spine Motor strength in the deltoid and biceps: Normal right side. Normal Left side Motor strength biceps and the wrist extensors: Normal right side . Normal left side Motor strength in the triceps muscle: Normal right side. Normal left side Deep tendon reflexes: Normal at the biceps. Normal at Brachioradialis. Normal at triceps Cervical facet loading test: positive bilaterally Spurling test: positive bilaterally Neck distraction test: positive bilaterally Ibis sign: positive bilaterally Lumbar spine Motor strength lower extremities ,thigh and legs 5/5 Right side , 5/5 Left side Deep tendon reflexes : Normal Knee Jerk. Normal Ankle Jerk Vertebral body tenderness over L3, L4, L5, S1 Lumbar facet Loading Test: positive Right / positive Left Range of motion of the lumbar spine Flexion 45 degrees, extension 10 degrees Straight Leg Raise test: Left/ Right positive at 30 degrees Sharon test: positive right / positive left. Severe tenderness over the Sacroiliac joint on the Right / Left sides Gaenslen test: positive bilaterally Seated flexion test: positive bilaterally. Imaging: MRI noncontrast of the lumbar spine without contrast from 06/29/23 reviewed. Assessment/ Plan : Recommendation of medication management. [id number]/325mg #120 q 1 RF. Use, side effects, adverse reactions and safe storage discussed. Opiate/ narcotic agreement signed 09/28/23. Will obtain records from Natty Dumas, All questions answered. I have spent greater than 50 minutes on patient care today. Dr Moeller was available by phone for the evaluation of this patient. The time was used to review the medical records including relevant urine studies and Prescription history (MAPs), review of the available imaging, evaluation and examination of the patient, coordination of care with the medical staff and if applicable referring physicians, as well as creation of the medical record PQRS Narrative: Smoking Status Current every day smoker Hx Alcohol Use (MH) Yes Home Medications: Ambulatory Orders ALPRAZolam [Xanax] 2 mg PO TID PRN 12/19/14 Ammonium Lactate Cream [Ammonium Lactate] 1 applic TOPICAL DAILY 12/19/14 Aspirin 81 mg PO DAILY 12/19/14 Clobetasol Propionate/Emoll [Temovate Emollient 0.05% Crm] 1 applic TOPICAL DAILY 12/19/14 Clopidogrel [Plavix] 75 mg PO DAILY 12/19/14 Esomeprazole Magnesium [NexIUM] 40 mg PO DAILY 12/19/14 Ranolazine [Ranexa] 500 mg PO BID 12/19/14 Rosuvastatin Calcium [Crestor] 20 mg PO HS 12/19/14 Venlafaxine HCl ER [Effexor Xr] 150 mg PO DAILY 12/19/14 lamoTRIgine [LaMICtal] 200 mg PO DAILY 12/19/14 Celecoxib [CeleBREX] 200 mg PO DAILY 12/25/14 Nitroglycerin Sl Tabs [Nitrostat] 0.4 mg SUBLINGUAL DIRECTED PRN 01/10/15 methocarbamoL [Robaxin-750] 750 mg PO TID PRN 01/10/15 Tamsulosin HCl [Flomax] 0.4 mg PO DAILY 01/30/15 Isosorbide Mononitrate [Isosorbide Mononitrate ER] 30 mg PO DAILY 11/05/21 Omeprazole 20 mg PO DAILY 11/05/21 carvediloL [Coreg] 6.25 mg PO QAM 11/05/21 carvediloL [Coreg] 12.5 mg PO HS 11/05/21 lisinopriL [Prinivil] 20 mg PO BID 11/05/21 traZODone HCL 150 mg PO HS 11/05/21 oxyCODONE HCL/ACETAMINOPHEN [Percocet 10-325 mg Tablet] 1 each PO QID PRN 30 Days #120 tab 09/28/23 oxyCODONE HCL/ACETAMINOPHEN [Percocet 10-325 mg] 1 tab PO Q6HR PRN 30 Days #120 tab 09/28/23 Controlled Substance Measures - Controlled Substance Measures Is patient prescribed a controlled substance at discharge?: Yes When asked, does pt state using other controlled substances?: No If prescribed controlled substance>3 days was MAPS reviewed?: Yes If Rx opioid, was Start Talking consent form obtained?: Yes Was information provided regarding opioid addiction?: Yes
== END ==
LOC: PNWHC3 08:00
PROVIDERS: ATTEND Specialist
DX: M41.86 Other forms of scoliosis, lumbar region (principal); M47.816 Spondylosis without myelopathy or radiculopathy, lumbar region; F17.200 Nicotine dependence, unspecified, uncomplicated; Z79.82 Long term (current) use of aspirin
CPT/HCPCS: 99211

== ENCOUNTER → 2023-11-25 | Outpatient (CLI) | payer MEDICARE ==
[2023-11-25 08:26] VITALS: BP 112/60; PULSE 55; RESP 15; TEMP 98.5
--- NOTE | 2023-11-25 14:34 | P.PAINPG ---
PQRS Measure Charge Sheet Comment: HISTORY OF PRESENT ILLNESS: A 68 yr old male presents today with lower back pain secondary to spondylosis, disc bulges, neuroforaminal stenoses, DDD, scoliosis and facet arthropathy for medication refills. Pt states his pain is at 7 /10 in intensity, predominantly axial, achy in character, localized to the center with occasional radiation of pain to the left paraspinal muscles. Pain is exacerbated with bending, standing, walking and laying supine. It is relieved with medications, injections, ice, heat, physical therapy on 09/21, massage that ended 09/21, chiropractic treatments weekly but ended 2 months ago due to a plateau in progress, use of a reclining chair, hot showers and rest. Oswestry axial pain score of 35. Interventional procedures include LESA L5-S1 (2014) Medications include Neurontin, Tyl, Excedrein, Voltaren gel REVIEW OF ORGAN SYSTEMS: CONSTITUTIONAL: No fevers or chills. No recent weight loss. HEENT: No visual acuity loss, eye pain, difficulties with hearing. No nosebleeds. No difficulty swallowing. RESPIRATORY: Denies any troubles with breathing or dyspnea on exertion. CARDIOVASCULAR: Denies any chest pain, palpitations, or recent heart attacks. GASTROINTESTINAL: Denies fatty food intolerance. Has change in bowel habits and gas bloat. GENITOURINARY: Denies any blood in urine. Has increased urinary frequency. NEUROLOGICAL: + numbness and tingling along the distal extremities. No seizure disorders or headaches. MUSCULOSKELETAL: + back pain SKIN: No skin cancer. No rash. PSYCHIATRIC: Denies current depression or suicidal thoughts. ENDOCRINE: Denies current thyroid disorders. Denies any blood sugar glucose intolerance. HEME/LYMPHATIC: Denies any lumps and bumps around the neck. History of deep venous thrombosis. ALLERGY/IMMUNOLOGY: No immunoglobulin therapy. No immune deficiencies. BREAST: Denies current breast lumps, pain or nipple discharge. Physical Examinations : Constitutional : Cooperative , not in acute distress . Appears older than stated age. HEENT: Neck supple. No Lymphadenopathy. Normal thyroid size . Eyes no ptosis , no icterus, no photophobia . Hearing intact. Normal oropharynx. No Thrush. Respiratory : Chest clear to auscultations bilaterally. No whee zing. No rhonchi. Cardiovascular : Regular rate and rhythm , S1 / S2. No S3 . No S4. Gastrointestinal : Abdomen soft. No tenderness. Bowel sounds x 4. No organomegaly . Genitourinary : Deferred. Neurologic : Cranial nerve II to XII intact. No focal neurological deficits. Psychiatric : alert & oriented x 3. Matching mood & appropriate affect. Judgment & insight intact. Lymphatic No Lymphadenopathy. Musculoskeletal : Cervical Spine Motor strength in the deltoid and biceps: Normal right side. Normal Left side Motor strength biceps and the wrist extensors: Normal right side . Normal left side Motor strength in the triceps muscle: Normal right side. Normal left side Deep tendon reflexes: Normal at the biceps. Normal at Brachioradialis. Normal at triceps Cervical facet loading test: positive bilaterally Spurling test: positive bilaterally Neck distraction test: positive bilaterally Ibis sign: positive bilaterally Lumbar spine Motor strength lower extremities ,thigh and legs 5/5 Right side , 5/5 Left side Deep tendon reflexes : Normal Knee Jerk. Normal Ankle Jerk Vertebral body tenderness over L3, L4, L5, S1 Lumbar facet Loading Test: positive Right / positive Left Range of motion of the lumbar spine Flexion 45 degrees, extension 10 degrees Straight Leg Raise test: Left/ Right positive at 30 degrees Sharon test: positive right / positive left. Severe tenderness over the Sacroiliac joint on the Right / Left sides Gaenslen test: positive bilaterally Seated flexion test: positive bilaterally. Imaging: MRI noncontrast of the lumbar spine without contrast from 06/29/23 reviewed. Assessment/ Plan : Recommendation of medication management. Percocet 10/325mg #120 w 1 RF. Use, side effects, adverse reactions and safe storage discussed. UDS collected 11/25/23. Opiate/ narcotic agreement signed 09/28/23. Awaiting records from [facility]ty Dumas for repeat RFA. All questions answered. I have spent greater than 50 minutes on patient care today. Dr Moeller was available by phone for the evaluation of this patient. The time was used to review the medical records including relevant urine studies and Prescription history (MAPs), review of the available imaging, evaluation and examination of the patient, coordination of care with the medical staff and if applicable referring physicians, as well as creation of the medical record - Pain Location Bilateral Lower Back Non-Pharmacological Interventions: Ice, Inactivity, Position/Reposition Pharmacological Interventions: Scheduled Medication PQRS Narrative: Smoking Status Current every day smoker Hx Alcohol Use (MH) Yes Home Medications: Ambulatory Orders ALPRAZolam [Xanax] 2 mg PO TID PRN 12/19/14 Ammonium Lactate Cream [Ammonium Lactate] 1 applic TOPICAL DAILY 12/19/14 Aspirin 81 mg PO DAILY 12/19/14 Clobetasol Propionate/Emoll [Temovate Emollient 0.05% Crm] 1 applic TOPICAL DAILY 12/19/14 Clopidogrel [Plavix] 75 mg PO DAILY 12/19/14 Esomeprazole Magnesium [NexIUM] 40 mg PO DAILY 12/19/14 Ranolazine [Ranexa] 500 mg PO BID 12/19/14 Rosuvastatin Calcium [Crestor] 20 mg PO HS 12/19/14 Venlafaxine HCl ER [Effexor Xr] 150 mg PO DAILY 12/19/14 lamoTRIgine [LaMICtal] 200 mg PO DAILY 12/19/14 Celecoxib [CeleBREX] 200 mg PO DAILY 12/25/14 Nitroglycerin Sl Tabs [Nitrostat] 0.4 mg SUBLINGUAL DIRECTED PRN 01/10/15 methocarbamoL [Robaxin-750] 750 mg PO TID PRN 01/10/15 Tamsulosin HCl [Flomax] 0.4 mg PO DAILY 01/30/15 Isosorbide Mononitrate [Isosorbide Mononitrate ER] 30 mg PO DAILY 11/05/21 Omeprazole 20 mg PO DAILY 11/05/21 carvediloL [Coreg] 6.25 mg PO QAM 11/05/21 carvediloL [Coreg] 12.5 mg PO HS 11/05/21 lisinopriL [Prinivil] 20 mg PO BID 11/05/21 traZODone HCL 150 mg PO HS 11/05/21 oxyCODONE HCL/ACETAMINOPHEN [Percocet 10-325 mg] 1 each PO QID PRN 30 Days #120 tab 11/25/23 oxyCODONE HCL/ACETAMINOPHEN [Percocet 10-325 mg] 1 tab PO Q6HR PRN 30 Days #120 tab 11/25/23 Controlled Substance Measures - Controlled Substance Measures Is patient prescribed a controlled substance at discharge?: Yes When asked, does pt state using other controlled substances?: Yes If prescribed controlled substance>3 days was MAPS reviewed?: Yes
== END ==
LOC: PNWHC3 07:50
PROVIDERS: ATTEND Specialist
DX: M47.817 Spondylosis without myelopathy or radiculopathy, lumbosacral region (principal); F17.200 Nicotine dependence, unspecified, uncomplicated
CPT/HCPCS: 80307; 99212

== ENCOUNTER → 2023-12-11 | Outpatient (CLI) | payer MEDICARE ==
--- NOTE | 2023-12-11 17:29 | CTL ---
EXAMINATION TYPE: CT Low Dose Lung DATE OF EXAM: 12/11/2023 5:05 PM CLINICAL INDICATION:Male, 68 years old with history of Z12.2 lung cancer scrn; F17.210 current smoker ; Current smoker, 1 ppd x 40 years, COPD , history of tobacco use. COMPARISON: 07/23/2018. TECHNIQUE: Multiple axial non-contrast scans were obtained from approximately the lung apices through the upper abdomen. Coronal and sagittal reformatted images were obtained. Low dose technique was uti lized. CT DLP: 71.1 mGycm, Automated exposure control for dose reduction was used. CT Contrast: Contrast used: None Oral contrast used: None FINDINGS: ======== Lack of intravenous contrast and low dose technique limits the evaluation of the vascular and soft ti ssue structures. LUNGS: No evidence of pulmonary fibrosis. No evidence of focal consolidation, pneumothorax or pleural effusion. Mild emphysema changes. Nodules: RUL: None. RML: None. RLL: None. ZURI: None. LLL: None. AIRWAY: Patent and unremarkable. HEART: Size within normal limits. Increased density within the right coronary sinus possibly relating to atherosclerotic plaque versus stent. Foramen ovale occlusion device present. MEDIASTINUM: No gross evidence of adenopathy. VASCULATURE: No aortic aneurysm. MUSCULOSKELETAL: No acute osseous abnormalities, scoliosis changes throughout the spine. Postsurgical changes to the right shoulder arthroplasty changes. SOFT TISSUES/LYMPH NODES: Unremarkable. LOWER NECK: No significant findings. UPPER ABDOMEN: No significant findings. IMPRESSION: 1. No clinically significant pulmonary nodules. 2. Mild emphysema. CT LUNG RAD AND CT CHEST RECOMMENDATION: Lung-Rad 1 Negative: Continue annual screening with LDCT in 12 months. S Modifier (other clinically significant findings): None Recommend smoking cessation (if current smoker), or continuation of smoking cessation (if prior smoke r). Annual screening for lung cancer with low-dose computed tomography is recommended in adults ages 55 to 77 years who have a 30 pack-year smoking history and currently smoke or have quit within the pa st 15 years. Screening should be discontinued once a person has not smoked for 15 years or develops a health problem that substantially limits life expectancy or the ability or willingness to have curat gabe lung surgery. Lung rads 2021 [email or web address]
== END | disposition home or self-care (01) ==
LOC: RADCTMAIN 15:32
PROVIDERS: ATTEND Family Medicine
DX: Z12.2 Encounter for screening for malignant neoplasm of respiratory organs (principal); F17.210 Nicotine dependence, cigarettes, uncomplicated; J43.9 Emphysema, unspecified
CPT/HCPCS: 71271

== ENCOUNTER → 2023-12-11 | Outpatient (CLI) | payer MEDICARE ==
--- NOTE | 2023-12-11 16:45 | US ---
EXAMINATION TYPE: US kidneys/renal and bladder DATE OF EXAM: 12/11/2023 COMPARISON: CT 07/23/2018 CLINICAL INDICATION: Male, 68 years old with history of N18.31 CHRONIC KIDNEY DISEASE, STAGE 3A; Sydni ent states CKD and flank pain EXAM MEASUREMENTS: Right Kidney: 7.1 x 3.1 x 3.2 cm Left Kidney: 6.5 x 4.3 x 3.8 cm Very limited examination due to overlying bowel and patient body habitus Right Kidney: Entire kidney difficult to evaluate due to overlying bowel gas. Portion seen appeared W NL. Measurement is an estimation. Left Kidney: No hydronephrosis or masses seen as best visualized today. DIfficult to fully evaluate d ue to overlying bowel. Bladder: wnl as best seen Bilateral Jets seen: No IMPRESSION: Mildly limited exam due to overlying bowel gas. No evidence for acute process. No obstructive uropath y.
== END | disposition home or self-care (01) ==
LOC: RADUSWWP 15:29
PROVIDERS: ATTEND Family Medicine
DX: N18.31 Chronic kidney disease, stage 3a (principal)
CPT/HCPCS: 76770

== ENCOUNTER → 2024-01-21 | Outpatient (CLI) | payer MEDICARE ==
[2024-01-21 14:09] VITALS: BP 143/78; PULSE 99; RESP 16
--- NOTE | 2024-01-21 14:53 | P.PAINPG ---
PQRS Measure Charge Sheet Comment: HISTORY OF PRESENT ILLNESS: A 68 yr old male presents today with lower back pain secondary to spondylosis, disc bulges, neuroforaminal stenoses, DDD, scoliosis and facet arthropathy for medication refills. Pt states his pain is at 7 /10 in intensity, predominantly axial, achy in character, localized to the center with occasional radiation of pain to the left paraspinal muscles. Pain is exacerbated with bending, standing, walking and laying supine. It is relieved with medications, injections, ice, heat, physical therapy on 09/21, massage that ended 09/21, chiropractic treatments weekly but ended 2 months ago due to a plateau in progress, use of a reclining chair, hot showers and rest. Oswestry axial pain score of 35. Interventional procedures include LESA L5-S1 (2014) Medications include Neurontin, Tyl, Excedrein, Voltaren gel REVIEW OF ORGAN SYSTEMS: CONSTITUTIONAL: No fevers or chills. No recent weight loss. HEENT: No visual acuity loss, eye pain, difficulties with hearing. No nosebleeds. No difficulty swallowing. RESPIRATORY: Denies any troubles with breathing or dyspnea on exertion. CARDIOVASCULAR: Denies any chest pain, palpitations, or recent heart attacks. GASTROINTESTINAL: Denies fatty food intolerance. Has change in bowel habits and gas bloat. GENITOURINARY: Denies any blood in urine. Has increased urinary frequency. NEUROLOGICAL: + numbness and tingling along the distal extremities. No seizure disorders or headaches. MUSCULOSKELETAL: + back pain SKIN: No skin cancer. No rash. PSYCHIATRIC: Denies current depression or suicidal thoughts. ENDOCRINE: Denies current thyroid disorders. Denies any blood sugar glucose intolerance. HEME/LYMPHATIC: Denies any lumps and bumps around the neck. History of deep venous thrombosis. ALLERGY/IMMUNOLOGY: No immunoglobulin therapy. No immune deficiencies. BREAST: Denies current breast lumps, pain or nipple discharge. Physical Examinations : Constitutional : Cooperative , not in acute distress . Appears older than stated age. HEENT: Neck supple. No Lymphadenopathy. Normal thyroid size . Eyes no ptosis , no icterus, no photophobia . Hearing intact. Normal oropharynx. No Thrush. Respiratory : Chest clear to auscultations bilaterally. No whee zing. No rhonchi. Cardiovascular : Regular rate and rhythm , S1 / S2. No S3 . No S4. Gastrointestinal : Abdomen soft. No tenderness. Bowel sounds x 4. No organomegaly . Genitourinary : Deferred. Neurologic : Cranial nerve II to XII intact. No focal neurological deficits. Psychiatric : alert & oriented x 3. Matching mood & appropriate affect. Judgment & insight intact. Lymphatic No Lymphadenopathy. Musculoskeletal : Cervical Spine Motor strength in the deltoid and biceps: Normal right side. Normal Left side Motor strength biceps and the wrist extensors: Normal right side . Normal left side Motor strength in the triceps muscle: Normal right side. Normal left side Deep tendon reflexes: Normal at the biceps. Normal at Brachioradialis. Normal at triceps Cervical facet loading test: positive bilaterally Spurling test: positive bilaterally Neck distraction test: positive bilaterally Ibis sign: positive bilaterally Lumbar spine Motor strength lower extremities ,thigh and legs 5/5 Right side , 5/5 Left side Deep tendon reflexes : Normal Knee Jerk. Normal Ankle Jerk Vertebral body tenderness over L3, L4, L5, S1 Lumbar facet Loading Test: positive Right / positive Left Range of motion of the lumbar spine Flexion 45 degrees, extension 10 degrees Straight Leg Raise test: Left/ Right positive at 30 degrees Sharon test: positive right / positive left. Severe tenderness over the Sacroiliac joint on the Right / Left sides Gaenslen test: positive bilaterally Seated flexion test: positive bilaterally. Imaging: MRI noncontrast of the lumbar spine without contrast from 06/29/23 reviewed. Assessment/ Plan : Recommendation of medication management. Percocet 10/325mg #120 w 1 RF. Use, side effects, adverse reactions and safe storage discussed. UDS fr 11/25/23 reviewed and consistent. Opiate/ narcotic agreement signed 09/28/23. Resent VERONICA to [facility] c/o Natty Dumas PAC for records of lumbar RFA. All questions answered. I have spent greater than 50 minutes on patient care today. Dr Moeller was available by phone for the evaluation of this patient. The time was used to review the medical records including relevant urine studies and Prescription history (MAPs), review of the available imaging, evaluation and examination of the patient, coordination of care with the medical staff and if applicable referring physicians, as well as creation of the medical record PQRS Narrative: Smoking Status Current every day smoker Hx Alcohol Use (MH) Yes Home Medications: Ambulatory Orders ALPRAZolam [Xanax] 2 mg PO TID PRN 12/19/14 Ammonium Lactate Cream [Ammonium Lactate] 1 applic TOPICAL DAILY 12/19/14 Aspirin 81 mg PO DAILY 12/19/14 Clobetasol Propionate/Emoll [Temovate Emollient 0.05% Crm] 1 applic TOPICAL DAILY 12/19/14 Clopidogrel [Plavix] 75 mg PO DAILY 12/19/14 Esomeprazole Magnesium [NexIUM] 40 mg PO DAILY 12/19/14 Ranolazine [Ranexa] 500 mg PO BID 12/19/14 Rosuvastatin Calcium [Crestor] 20 mg PO HS 12/19/14 Venlafaxine HCl ER [Effexor Xr] 150 mg PO DAILY 12/19/14 lamoTRIgine [LaMICtal] 200 mg PO DAILY 12/19/14 Celecoxib [CeleBREX] 200 mg PO DAILY 12/25/14 Nitroglycerin Sl Tabs [Nitrostat] 0.4 mg SUBLINGUAL DIRECTED PRN 01/10/15 methocarbamoL [Robaxin-750] 750 mg PO TID PRN 01/10/15 Tamsulosin HCl [Flomax] 0.4 mg PO DAILY 01/30/15 Isosorbide Mononitrate [Isosorbide Mononitrate ER] 30 mg PO DAILY 11/05/21 Omeprazole 20 mg PO DAILY 11/05/21 carvediloL [Coreg] 6.25 mg PO QAM 11/05/21 carvediloL [Coreg] 12.5 mg PO HS 11/05/21 lisinopriL [Prinivil] 20 mg PO BID 11/05/21 traZODone HCL 150 mg PO HS 11/05/21 oxyCODONE HCL/ACETAMINOPHEN [Percocet 10-325 mg] 1 each PO QID PRN 30 Days #120 tab 01/21/24 oxyCODONE HCL/ACETAMINOPHEN [Percocet 10-325 mg] 1 tab PO Q6HR PRN 30 Days #120 tab 01/21/24 Controlled Substance Measures - Controlled Substance Measures Is patient prescribed a controlled substance at discharge?: No
== END ==
LOC: PNWHC3 13:20
PROVIDERS: ATTEND Specialist
DX: M47.817 Spondylosis without myelopathy or radiculopathy, lumbosacral region (principal); M46.96 Unspecified inflammatory spondylopathy, lumbar region; M51.37 Other intervertebral disc degeneration, lumbosacral region; M41.9 Scoliosis, unspecified; M48.061 Spinal stenosis, lumbar region without neurogenic claudication; M51.27 Other intervertebral disc displacement, lumbosacral region; F17.200 Nicotine dependence, unspecified, uncomplicated; Z79.02 Long term (current) use of antithrombotics/antiplatelets
CPT/HCPCS: 99211

== ENCOUNTER → 2024-03-02 | Outpatient (CLI) | payer MEDICARE ==
--- NOTE | 2024-03-02 14:26 | CT ---
EXAMINATION TYPE: CT abdomen pelvis wo con CT DLP: 487 mGycm, Automated exposure control for dose reduction was used. DATE OF EXAM: 03/02/2024 1:44 PM COMPARISON: 07/23/2019, 12/11/2023 CLINICAL INDICATION:Male, 68 years old with history of N18.31 CHRONIC KIDNEY DISEASE, STAGE 3A; chron ic kidney dx TECHNIQUE: Axial CT abdomen pelvis wo con;Sagittal and coronal reformats were created on a separate workstation. Contrast used: mL of , (none if empty) Oral contrast used: without Oral Contrast (none if empty) FINDINGS: LOWER CHEST: Atrial septal defect closure device is present. Right coronary artery stent graft for si ze and density calcifications present. ABDOMEN LIVER: Unremarkable GALLBLADDER AND BILE DUCTS: Increased density noted within the gallbladder lumen. PANCREAS: Unremarkable. SPLEEN: Unremarkable. ADRENAL GLANDS: Unremarkable. KIDNEYS AND URETERS: Nonobstructing left 5 mm renal calculus. No obstructive uropathy. No right renal calculi. Kidneys are similar in position and size compared to prior. PELVIS BLADDER: Unremarkable REPRODUCTIVE: Unremarkable. ABDOMEN & PELVIS STOMACH AND BOWEL: No evidence of bowel obstruction. Large amount stool seen in the sigmoid colon and rectum with upstream gaseous dilation of the transverse colon right hepatic flexure which is situate d between the liver and diaphragm anteriorly. PERITONEUM/RETROPERITONEUM: No evidence of pneumoperitoneum or free fluid. VASCULATURE: Mild atherosclerotic calcifications are present throughout the abdominal aorta and its b ranches. No evidence of aortic aneurysm. MUSCULOSKELETAL: No acute osseous abnormalities, Scoliosis changes throughout the spine. LYMPH NODES: No gross evidence for lymphadenopathy. SOFT TISSUE/ABDOMINAL WALL: Unremarkable IMPRESSION: 1. No evidence for obstructive uropathy. 2. Nonobstructing left renal calculus. 3. Large amount stool in the sigmoid colon and rectum with upstream gaseous dilation. 4. Subtle increased density in the gallbladder lumen possibly representing cholelithiasis.
--- NOTE | 2024-03-02 16:27 | XR ---
EXAMINATION TYPE: XR KUB DATE OF EXAM: 03/02/2024 Comparison: Correlation CT 03/02/2024 Clinical History: 68-year-old male R10.84 ABD PAIN Findings: 1.0 cm left lower pole renal stone. Reverse S-shaped scoliosis. Lung bases are clear. Coronary artery stent noted within the heart. There is scattered moderate stool. Nonobstructive bowel gas pattern. V ascular calcifications. Impression: 1 cm left lower pole renal stone. Scattered moderate stool burden. Reverse S-shaped scoliosis.
== END | disposition home or self-care (01) ==
LOC: RADCTMAIN 13:15
PROVIDERS: ATTEND Internal Medicine
DX: N13.2 Hydronephrosis with renal and ureteral calculous obstruction (principal); N18.31 Chronic kidney disease, stage 3a
CPT/HCPCS: 74018; 74176

== ENCOUNTER → 2024-03-17 | Outpatient (CLI) | payer MEDICARE ==
[2024-03-17 13:45] VITALS: BP 136/77; PULSE 61; RESP 16
--- NOTE | 2024-03-17 14:17 | P.PAINPG ---
Objective - Vital Signs Vital signs: Vital Signs Temp Pulse 61 03/17/24 13:44 Resp 16 03/17/24 13:44 BP 136/77 03/17/24 13:44 Pulse Ox 100 03/17/24 13:44 FiO2 PQRS Measure Charge Sheet Mode of Arrival: Ambulatory Comment: HISTORY OF PRESENT ILLNESS: A 68 yr old male presents today with LBP> 1 yr secondary to spondylosis, disc bulges, neuroforaminal stenoses, DDD, scoliosis and facet arthropathy for medication refills. Pt states his pain is at 7 /10 in intensity, predominantly axial, achy in character, localized to the center with occasional radiation of pain to the BLEs. Pain is exacerbated with bending, standing, walking and laying supine. It is relieved with medications, injections, ice, heat, physical therapy on 09/21, massage that ended 09/21, chiropractic treatments weekly but ended in Oct 2023 due to a plateau in progress, use of a reclining chair, hot showers and rest. Oswestry axial pain score of 35. Interventional procedures include LESA L5-S1 (2014) Medications include Neurontin, Tyl, Excedrein, Voltaren gel REVIEW OF ORGAN SYSTEMS: CONSTITUTIONAL: No fevers or chills. No recent weight loss. HEENT: No visual acuity loss, eye pain, difficulties with hearing. No nosebleeds. No difficulty swallowing. RESPIRATORY: Denies any troubles with breathing or dyspnea on exertion. CARDIOVASCULAR: Denies any chest pain, palpitations, or recent heart attacks. GASTROINTESTINAL: Denies fatty food intolerance. Has change in bowel habits and gas bloat. GENITOURINARY: Denies any blood in urine. Has increased urinary frequency. NEUROLOGICAL: + numbness and tingling along the distal extremities. No seizure disorders or headaches. MUSCULOSKELETAL: + back pain SKIN: No skin cancer. No rash. PSYCHIATRIC: Denies current depression or suicidal thoughts. ENDOCRINE: Denies current thyroid disorders. Denies any blood sugar glucose intolerance. HEME/LYMPHATIC: Denies any lumps and bumps around the neck. History of deep venous thrombosis. ALLERGY/IMMUNOLOGY: No immunoglobulin therapy. No immune deficiencies. BREAST: Denies current breast lumps, pain or nipple discharge. Physical Examinations : Constitutional : Cooperative , not in acute distress . Appears older than stated age. HEENT: Neck supple. No Lymphadenopathy. Normal thyroid size . Eyes no ptosis , no icterus, no photophobia . Hearing intact. Normal oropharynx. No Thrush. Respiratory : Chest clear to auscultations bilaterally. No wheezing. No rhonchi. Cardiovascular : Regular rate and rhythm , S1 / S2. No S3 . No S4. Gastrointestinal : Abdomen soft. No tenderness. Bowel sounds x 4. No organomegaly . Genitourinary : Deferred. Neurologic : Cranial nerve II to XII intact. No focal neurological deficits. Psychiatric : alert & oriented x 3. Matching mood & appropriate affect. Judgment & insight intact. Lymphatic No Lymphadenopathy. Musculoskeletal : Cervical Spine Motor strength in the deltoid and biceps: Normal right side. Normal Left side Motor strength biceps and the wrist extensors: Normal right side . Normal left side Motor strength in the triceps muscle: Normal right side. Normal left side Deep tendon reflexes: Normal at the biceps. Normal at Brachioradialis. Normal at triceps Cervical facet loading test: positive bilaterally Spurling test: positive bilaterally Neck distraction test: positive bilaterally Ibis sign: positive bilaterally Lumbar spine Motor strength lower extremities ,thigh and legs 5/5 Right side , 5/5 Left side Deep tendon reflexes : Normal Knee Jerk. Normal Ankle Jerk Vertebral body tenderness over L3, L4, L5, S1 Lumbar facet Loading Test: positive Right / positive Left Range of motion of the lumbar spine Flexion 45 degrees, extension 10 degrees Straight Leg Raise test: Left/ Right positive at 30 degrees Sharon test: positive right / positive left. Severe tenderness over the Sacroiliac joint on the Right / Left sides Gaenslen test: positive bilaterally Seated flexion test: positive bilaterally. Imaging: MRI noncontrast of the lumbar spine without contrast from 06/29/23 reviewed. Assessment/ Plan : Recommendation of medication management. Percocet 10/325mg #120 w 1 RF. Use, side effects, adverse reactions and safe storage discussed. UDS fr 11/25/23 reviewed and consistent. Opiate/ narcotic agreement signed 09/28/23. Discussed use of Narcan, to make surrounding contacts aware and pt acknowledged understanding. Awaiting records from [facility] c/o Natty Dumas PAC of lumbar RFA. All questions answered. I have spent greater than 50 minutes on patient care today. Dr Moeller was available by phone for the evaluation of this patient. The time was used to review the medical records including relevant urine studies and Prescription history (MAPs), review of the available imaging, evaluation and examination of the patient, coordination of care with the medical staff and if applicable ref erring physicians, as well as creation of the medical record PQRS Narrative: Smoking Status Current every day smoker Blood Pressure 136/77 Scale Used Numeric (1 - 10) Hx Alcohol Use (MH) Yes Home Medications: Ambulatory Orders ALPRAZolam [Xanax] 2 mg PO TID PRN 12/19/14 Ammonium Lactate Cream [Ammonium Lactate] 1 applic TOPICAL DAILY 12/19/14 Aspirin 81 mg PO DAILY 12/19/14 Clobetasol Propionate/Emoll [Temovate Emollient 0.05% Crm] 1 applic TOPICAL DAILY 12/19/14 Clopidogrel [Plavix] 75 mg PO DAILY 12/19/14 Esomeprazole Magnesium [NexIUM] 40 mg PO DAILY 12/19/14 Ranolazine [Ranexa] 500 mg PO BID 12/19/14 Rosuvastatin Calcium [Crestor] 20 mg PO HS 12/19/14 Venlafaxine HCl ER [Effexor Xr] 150 mg PO DAILY 12/19/14 lamoTRIgine [LaMICtal] 200 mg PO DAILY 12/19/14 Celecoxib [CeleBREX] 200 mg PO DAILY 12/25/14 Nitroglycerin Sl Tabs [Nitrostat] 0.4 mg SUBLINGUAL DIRECTED PRN 01/10/15 methocarbamoL [Robaxin-750] 750 mg PO TID PRN 01/10/15 Tamsulosin HCl [Flomax] 0.4 mg PO DAILY 01/30/15 Isosorbide Mononitrate [Isosorbide Mononitrate ER] 30 mg PO DAILY 11/05/21 Omeprazole 20 mg PO DAILY 11/05/21 carvediloL [Coreg] 6.25 mg PO QAM 11/05/21 carvediloL [Coreg] 12.5 mg PO HS 11/05/21 lisinopriL [Prinivil] 20 mg PO BID 11/05/21 traZODone HCL 150 mg PO HS 11/05/21 Naloxone HCl [Narcan] 4 mg NASAL ONCE PRN 365 Days #1 each 02/29/24 Diclofenac Epolamine [Diclofenac Epolamine 1.3% patch] 1 patch TRANSDERM DAILY 30 Days #30 patch 03/17/24 oxyCODONE HCL/ACETAMINOPHEN [Percocet 10-325 mg] 1 each PO QID PRN 30 Days #120 tab 03/17/24 oxyCODONE HCL/ACETAMINOPHEN [Percocet 10-325 mg] 1 tab PO Q6HR PRN 30 Days #120 tab 03/17/24 Controlled Substance Measures - Controlled Substance Measures Is patient prescribed a controlled substance at discharge?: Yes When asked, does pt state using other controlled substances?: Yes If prescribed controlled substance>3 days was MAPS reviewed?: Yes
== END ==
LOC: PNWHC3 13:30
PROVIDERS: ATTEND Specialist
DX: M47.817 Spondylosis without myelopathy or radiculopathy, lumbosacral region (principal); T78.8XXA Other adverse effects, not elsewhere classified, initial encounter; F17.200 Nicotine dependence, unspecified, uncomplicated
CPT/HCPCS: 99211

== ENCOUNTER → 2024-05-19 | Outpatient (CLI) | payer MEDICARE ==
[2024-05-19 14:18] VITALS: BP 127/74; PULSE 89; RESP 16; TEMP 97.1
--- NOTE | 2024-05-19 14:25 | P.PAINPG ---
PQRS Measure Charge Sheet Comment: HISTORY OF PRESENT ILLNESS: A 68 yr old male presents today with LBP> 1 yr secondary to spondylosis, disc bulges, neuroforaminal stenoses, DDD, scoliosis and facet arthropathy for medication refills. Pt states his pain is at 7 /10 in intensity, predominantly axial, achy in character, localized to the center with occasional radiation of pain to the BLEs. Pain is exacerbated with bending, standing, walking and laying supine. It is relieved with medications, injections, ice, heat, physical therapy on 09/21, massage that ended 09/21, chiropractic treatments weekly but ended in Oct 2023 due to a plateau in progress, use of a reclining chair, hot showers and rest. Interventional procedures include LESA L5-S1 (2014) Medications include Neurontin, Tyl, Excedrein, Voltaren gel REVIEW OF ORGAN SYSTEMS: CONSTITUTIONAL: No fevers or chills. No recent weight loss. HEENT: No visual acuity loss, eye pain, difficulties with hearing. No nosebleeds. No difficulty swallowing. RESPIRATORY: Denies any troubles with breathing or dyspnea on exertion. CARDIOVASCULAR: Denies any chest pain, palpitations, or recent heart attacks. GASTROINTESTINAL: Denies fatty food intolerance. Has change in bowel habits and gas bloat. GENITOURINARY: Denies any blood in urine. Has increased urinary frequency. NEUROLOGICAL: + numbness and tingling along the distal extremities. No seizure disorders or headaches. MUSCULOSKELETAL: + back pain SKIN: No skin cancer. No rash. PSYCHIATRIC: Denies current depression or suicidal thoughts. ENDOCRINE: Denies current thyroid disorders. Denies any blood sugar glucose intolerance. HEME/LYMPHATIC: Denies any lumps and bumps around the neck. History of deep venous thrombosis. ALLERGY/IMMUNOLOGY: No immunoglobulin therapy. No immune deficiencies. BREAST: Denies current breast lumps, pain or nipple discharge. Physical Examinations : Constitutional : Cooperative , not in acute distress . Appears older than stated age. HEENT: Neck supple. No Lymphadenopathy. Normal thyroid size . Eyes no ptosis , no icterus, no photophobia . Hearing intact. Normal oropharynx. No Thrush. Respiratory : Chest clear to auscultations bilaterally. No wheezing. No rhonchi. Cardiovascular : Regular rate and rhythm , S1 / S2. No S3 . No S4. Gastrointestinal : Abdomen soft. No tenderness. Bowel sounds x 4. No organomegaly . Genitourinary : Deferred. Neurologic : Cranial nerve II to XII intact. No focal neurological deficits. Psychiatric : alert & oriented x 3. Matching mood & appropriate affect. Judgment & insight intact. Lymphatic No Lymphadenopathy. Musculoskeletal : Cervical Spine Motor strength in the deltoid and biceps: Normal right side. Normal Left side Motor strength biceps and the wrist extensors: Normal right side . Normal left side Motor strength in the triceps muscle: Normal right side. Normal left side Deep tendon reflexes: Normal at the biceps. Normal at Brachioradialis. Normal at triceps Cervical facet loading test: positive bilaterally Spurling test: positive bilaterally Neck distraction test: positive bilaterally Ibis sign: positive bilaterally Lumbar spine Motor strength lower extremities ,thigh and legs 5/5 Right side , 5/5 Left side Deep tendon reflexes : Normal Knee Jerk. Normal Ankle Jerk Vertebral body tenderness over L3, L4, L5, S1 Lumbar facet Loading Test: positive Right / positive Left Range of motion of the lumbar spine Flexion 45 degrees, extension 10 degrees Straight Leg Raise test: Left/ Right positive at 30 degrees Sharon test: positive right / positive left. Severe tenderness over the Sacroiliac joint on the Right / Left sides Gaenslen test: positive bilaterally Seated flexion test: positive bilaterally. Imaging: MRI non contrast of the lumbar spine without contrast from 06/29/23 reviewed. Assessment/ Plan : Recommendation of medication management. Percocet 10/325mg #120 w 1 RF. Add Diclofenac tabs 50mg #60 w 1 RF. Use, side effects, adverse reactions and safe storage discussed. UDS from 11/25/23 reviewed and consistent. Opiate/ narcotic agreement signed 09/28/23. Discussed use of Narcan, to make surrounding contacts aware and pt acknowledged understanding. Awaiting records from [facility] c/o Natty Dumas PAC of lumbar RFA Jul 2023. All questions answered. I have spent greater than 25 minutes on patient care today. Dr Moeller was available by phone for the evaluation of this patient. The time was used to review the medical records including relevant urine studies and Prescription history (MAPs), review of the available imaging, evaluation and examination of the patient, coordination of care with the medical staff and if applicable referring physicians, as well as creation of the medical record - Pain Location Bilateral Lower Back Non-Pharmacological Interventions: Heat, Ice, Inactivity, Physical Therapy, Position/Reposition Pharmacological Interventions: PRN Medication, Scheduled Medication, Topical Medication PQRS Narrative: Smoking Status Current every day smoker Hx Alcohol Use (MH) Yes Home Medications: Ambulatory Orders ALPRAZolam [Xanax] 2 mg PO TID PRN 12/19/14 Ammonium Lactate Cream [Ammonium Lactate] 1 applic TOPICAL DAILY 12/19/14 Aspirin 81 mg PO DAILY 12/19/14 Clobetasol Propionate/Emoll [Temovate Emollient 0.05% Crm] 1 applic TOPICAL DAILY 12/19/14 Clopidogrel [Plavix] 75 mg PO DAILY 12/19/14 Esomeprazole Magnesium [NexIUM] 40 mg PO DAILY 12/19/14 Ranolazine [Ranexa] 500 mg PO BID 12/19/14 Rosuvastatin Calcium [Crestor] 20 mg PO HS 12/19/14 Venlafaxine HCl ER [Effexor Xr] 150 mg PO DAILY 12/19/14 lamoTRIgine [LaMICtal] 200 mg PO DAILY 12/19/14 Celecoxib [CeleBREX] 200 mg PO DAILY 12/25/14 Nitroglycerin Sl Tabs [Nitrostat] 0.4 mg SUBLINGUAL DIRECTED PRN 01/10/15 methocarbamoL [Robaxin-750] 750 mg PO TID PRN 01/10/15 Tamsulosin HCl [Flomax] 0.4 mg PO DAILY 01/30/15 Isosorbide Mononitrate [Isosorbide Mononitrate ER] 30 mg PO DAILY 11/05/21 Omeprazole 20 mg PO DAILY 11/05/21 carvediloL [Coreg] 6.25 mg PO QAM 11/05/21 carvediloL [Coreg] 12.5 mg PO HS 11/05/21 lisinopriL [Prinivil] 20 mg PO BID 11/05/21 traZODone HCL 150 mg PO HS 11/05/21 Naloxone HCl [Narcan] 4 mg NASAL ONCE PRN 365 Days #1 each 02/29/24 Diclofenac Epolamine [Diclofenac Epolamine 1.3% patch] 1 patch TRANSDERM DAILY 30 Days #30 patch 03/17/24 Diclofenac Sodium 50 mg PO BID 30 Days #60 tab 05/19/24 oxyCODONE HCL/ACETAMINOPHEN [Percocet 10-325 mg] 1 each PO QID PRN 30 Days #120 tab 05/19/24 oxyCODONE HCL/ACETAMINOPHEN [Percocet 10-325 mg] 1 tab PO Q6HR PRN 30 Days #120 tab 05/19/24 Controlled Substance Measures - Controlled Substance Measures Is patient prescribed a controlled substance at discharge?: Yes When asked, does pt state using other controlled substances?: Yes If prescribed controlled substance>3 days was MAPS reviewed?: Yes
== END ==
LOC: PNWHC3 14:03
PROVIDERS: ATTEND Specialist
DX: M47.816 Spondylosis without myelopathy or radiculopathy, lumbar region
CPT/HCPCS: 99211

== ENCOUNTER → 2024-07-14 | Outpatient (CLI) | payer MEDICARE ==
[2024-07-14 14:21] VITALS: BP 154/84; PULSE 72; RESP 16; TEMP 96.8
--- NOTE | 2024-07-14 14:39 | P.PAINPG ---
PQRS Measure Charge Sheet Comment: HISTORY OF PRESENT ILLNESS: A 68 yr old male presents today with LBP> 1 yr secondary to spondylosis, disc bulges, neuroforaminal stenoses, radiculopathy, scoliosis and facet arthropathy for medication refills. Pt states his pain is at 6 /10 in intensity, predominantly axial, achy in character, localized to the center with occasional radiation of pain to the BLEs. Pain is exacerbated with bending, standing, walking and laying supine. It is relieved with medications, injections, ice, heat, physical therapy on 09/21, massage that ended 09/21, chiropractic treatments weekly but ended in Oct 2023 due to a plateau in progress, use of a reclining chair, hot showers and rest. Interventional procedures include LESA L5-S1 (2014) Medications include Neurontin, Tyl, Excedrin, Voltaren gel REVIEW OF ORGAN SYSTEMS: CONSTITUTIONAL: No fevers or chills. No recent weight loss. HEENT: No visual acuity loss, eye pain, difficulties with hearing. No nosebleeds. No difficulty swallowing. RESPIRATORY: Denies any troubles with breathing or dyspnea on exertion. CARDIOVASCULAR: Denies any chest pain, palpitations, or recent heart attacks. GASTROINTESTINAL: Denies fatty food intolerance. Has change in bowel habits and gas bloat. GENITOURINARY: Denies any blood in urine. Has increased urinary frequency. NEUROLOGICAL: + numbness and tingling along the distal extremities. No seizure disorders or headaches. MUSCULOSKELETAL: + back pain SKIN: No skin cancer. No rash. PSYCHIATRIC: Denies current depression or suicidal thoughts. ENDOCRINE: Denies current thyroid disorders. Denies any blood sugar glucose intolerance. HEME/LYMPHATIC: Denies any lumps and bumps around the neck. History of deep venous thrombosis. ALLERGY/IMMUNOLOGY: No immunoglobulin therapy. No immune deficiencies. BREAST: Denies current breast lumps, pain or nipple discharge. Physical Examinations : Constitutional : Cooperative , not in acute distress . Appears older than stated age. HEENT: Neck supple. No Lymphadenopathy. Normal thyroid size . Eyes no ptosis , no icterus, no photophobia . Hearing intact. Normal oropharynx. No Thrush. Respiratory : Chest clear to auscultations bilaterally. No wheezing. No rhonchi. Cardiovascular : Regular rate and rhythm , S1 / S2. No S3 . No S4. Gastrointestinal : Abdomen soft. No tenderness. Bowel sounds x 4. No organomegaly . Genitourinary : Deferred. Neurologic : Cranial nerve II to XII intact. No focal neurological deficits. Psychiatric : alert & oriented x 3. Matching mood & appropriate affect. Judgment & insight intact. Lymphatic No Lymphadenopathy. Musculoskeletal : Cervical Spine Motor strength in the deltoid and bi ceps: Normal right side. Normal Left side Motor strength biceps and the wrist extensors: Normal right side . Normal left side Motor strength in the triceps muscle: Normal right side. Normal left side Deep tendon reflexes: Normal at the biceps. Normal at Brachioradialis. Normal at triceps Cervical facet loading test: positive bilaterally Spurling test: positive bilaterally Neck distraction test: positive bilaterally Ibis sign: positive bilaterally Lumbar spine Motor strength lower extremities ,thigh and legs 5/5 Right side , 5/5 Left side Deep tendon reflexes : Normal Knee Jerk. Normal Ankle Jerk Vertebral body tenderness over L3, L4, L5, S1 Lumbar facet Loading Test: positive Right / positive Left Range of motion of the lumbar spine Flexion 45 degrees, extension 10 degrees Straight Leg Raise test: Left/ Right positive at 30 degrees Sharon test: positive right / positive left. Severe tenderness over the Sacroiliac joint on the Right / Left sides Gaenslen test: positive bilaterally Seated flexion test: positive bilaterally. Imaging: MRI non contrast of the lumbar spine without contrast from 06/29/23 reviewed. Assessment/ Plan : Lumbar radiculopathy Recommendation of medication management. Percocet 10/325mg #120, Diclofenac tabs 50mg #60 w 1 RF. Use, side effects, adverse reactions and safe storage discussed. UDS collected 07/14/24. Opiate/ narcotic agreement signed 09/28/23. Admits to having Narcan in possession. Awaiting records from [facility] c/o Natty Dumas PAC of lumbar RFA Jul 2023. All questions answered. I have spent greater than 25 minutes on patient care today. Dr Moeller was available by phone for the evaluation of this patient. The time was used to review the medical records including relevant urine studies and Prescription history (MAPs), review of the available imaging, evaluation and examination of the patient, coordination of care with the medical staff and if applicable referring physicians, as well as creation of the medical record PQRS Narrative: Smoking Status Current every day smoker Hx Alcohol Use (MH) Yes Home Medications: Ambulatory Orders ALPRAZolam [Xanax] 2 mg PO TID PRN 12/19/14 Ammonium Lactate Cream [Ammonium Lactate] 1 applic TOPICAL DAILY 12/19/14 Aspirin 81 mg PO DAILY 12/19/14 Clobetasol Propionate/Emoll [Temovate Emollient 0.05% Crm] 1 applic TOPICAL DAILY 12/19/14 Clopidogrel [Plavix] 75 mg PO DAILY 12/19/14 Esomeprazole Magnesium [NexIUM] 40 mg PO DAILY 12/19/14 Ranolazine [Ranexa] 500 mg PO BID 12/19/14 Rosuvastatin Calcium [Crestor] 20 mg PO HS 12/19/14 Venlafaxine HCl ER [Effexor Xr] 150 mg PO DAILY 12/19/14 lamoTRIgine [LaMICtal] 200 mg PO DAILY 12/19/14 Celecoxib [CeleBREX] 200 mg PO DAILY 12/25/14 Nitroglycerin Sl Tabs [Nitrostat] 0.4 mg SUBLINGUAL DIRECTED PRN 01/10/15 methocarbamoL [Robaxin-750] 750 mg PO TID PRN 01/10/15 Tamsulosin HCl [Flomax] 0.4 mg PO DAILY 01/30/15 Isosorbide Mononitrate [Isosorbide Mononitrate ER] 30 mg PO DAILY 11/05/21 Omeprazole 20 mg PO DAILY 11/05/21 carvediloL [Coreg] 6.25 mg PO QAM 11/05/21 carvediloL [Coreg] 12.5 mg PO HS 11/05/21 lisinopriL [Prinivil] 20 mg PO BID 11/05/21 traZODone HCL 150 mg PO HS 11/05/21 Naloxone HCl [Narcan] 4 mg NASAL ONCE PRN 365 Days #1 each 02/29/24 Diclofenac Epolamine [Diclofenac Epolamine 1.3% patch] 1 patch TRANSDERM DAILY 30 Days #30 patch 03/17/24 Diclofenac Sodium 50 mg PO BID 30 Days #60 tab 05/19/24 oxyCODONE HCL/ACETAMINOPHEN [Percocet 10-325 mg] 1 each PO QID PRN 30 Days #120 tab 05/19/24 oxyCODONE HCL/ACETAMINOPHEN [Percocet 10-325 mg] 1 tab PO Q6HR PRN 30 Days #120 tab 05/19/24 Controlled Substance Measures - Controlled Substance Measures Is patient prescribed a controlled substance at discharge?: Yes When asked, does pt state using other controlled substances?: Yes If prescribed controlled substance>3 days was MAPS reviewed?: Yes
== END ==
LOC: PNWHC3 14:04
PROVIDERS: ATTEND Specialist
DX: M54.16 Radiculopathy, lumbar region (principal); F17.200 Nicotine dependence, unspecified, uncomplicated
CPT/HCPCS: 99212

== ENCOUNTER → 2024-09-08 | Outpatient (CLI) | payer MEDICARE ==
[2024-09-08 15:00] VITALS: BP 127/75; PULSE 58; RESP 16; TEMP 97.7
--- NOTE | 2024-09-10 11:11 | P.PAINPG ---
PQRS Measure Charge Sheet Comment: HISTORY OF PRESENT ILLNESS: A 68 yr old male presents today with LBP> 1 yr secondary to spondylosis, disc bulges, neuroforaminal stenoses, radiculopathy, scoliosis and facet arthropathy for medication refills. Pt states his pain is at 8 /10 in intensity, predominantly axial, sharp/ stabbing in character, localized to the center with occasional radiation of pain to the BLEs. Pain is exacerbated with bending, standing, walking and laying supine. It is relieved with medications, injections, ice, heat, physical therapy on 09/21, massage that ended 09/21, chiropractic treatments weekly but ended in Oct 2023 due to a plateau in progress, use of a reclining chair, hot showers and rest. Interventional procedures include LESA L5-S1 (2014) Medications include Neurontin, Tyl, Excedrin, Voltaren gel REVIEW OF ORGAN SYSTEMS: CONSTITUTIONAL: No fevers or chills. No recent weight loss. HEENT: No visual acuity loss, eye pain, difficulties with hearing. No nosebleeds. No difficulty swallowing. RESPIRATORY: Denies any troubles with breathing or dyspnea on exertion. CARDIOVASCULAR: Denies any chest pain, palpitations, or recent heart attacks. GASTROINTESTINAL: Denies fatty food intolerance. Has change in bowel habits and gas bloat. GENITOURINARY: Denies any blood in urine. Has increased urinary frequency. NEUROLOGICAL: + numbness and tingling along the distal extremities. No seizure disorders or headaches. MUSCULOSKELETAL: + back pain SKIN: No skin cancer. No rash. PSYCHIATRIC: Denies current depression or suicidal thoughts. ENDOCRINE: Denies current thyroid disorders. Denies any blood sugar glucose intolerance. HEME/LYMPHATIC: Denies any lumps and bumps around the neck. History of deep venous thrombosis. ALLERGY/IMMUNOLOGY: No immunoglobulin therapy. No immune deficiencies. BREAST: Denies current breast lumps, pain or nipple discharge. Physical Examinations : Constitutional : Cooperative , not in acute distress . Appears older than stated age. HEENT: Neck supple. No Lymphadenopathy. Normal thyroid size . Eyes no ptosis , no icterus, no photophobia . Hearing intact. Normal oropharynx. No Thrush. Respiratory : Chest clear to auscultations bilaterally. No wheezing. No rhonchi. Cardiovascular : Regular rate and rhythm , S1 / S2. No S3 . No S4. Gastrointestinal : Abdomen soft. No tenderness. Bowel sounds x 4. No organomegaly . Genitourinary : Deferred. Neurologic : Cranial nerve II to XII intact. No focal neurological deficits. Psychiatric : alert & oriented x 3. Matching mood & appropriate affect. Judgment & insight intact. Lymphatic No Lymphadenopathy. Musculoskeletal : Cervical Spine Motor strength in the deltoid and biceps: Normal right side. Normal Left side Motor strength biceps and the wrist extensors: Normal right side . Normal left side Motor strength in the triceps muscle: Normal right side. Normal left side Deep tendon reflexes: Normal at the biceps. Normal at Brachioradialis. Normal at triceps Cervical facet loading test: positive bilaterally Spurling test: positive bilaterally Neck distraction test: positive bilaterally Ibis sign: positive bilaterally Lumbar spine Motor strength lower extremities ,thigh and legs 5/5 Right side , 5/5 Left side Deep tendon reflexes : Normal Knee Jerk. Normal Ankle Jerk Vertebral body tenderness over L3, L4, L5, S1 Lumbar facet Loading Test: positive Right / positive Left Range of motion of the lumbar spine Flexion 45 degrees, extension 10 degrees Straight Leg Raise test: Left/ Right positive at 30 degrees Sharon test: positive right / positive left. Severe tenderness over the Sacroiliac joint on the Right / Left sides Gaenslen test: positive bilaterally Seated flexion test: positive bilaterally. Imaging: MRI non contrast of the lumbar spine without contrast from 06/29/23 reviewed. Assessment/ Plan : Lumbar radiculopathy Recommendation of medication management. Percocet 10/325mg #120, Diclofenac tabs 50mg #60, add Norflex 100gm #60 w 1 RF. Use, side effects, adverse reactions and safe storage discussed. UDS from 07/14/24 reviewed and consistent. Opiate/ narcotic agreement renewed 09/08/24. Admits to having Narcan in possession. Awaiting records from [facility] c/o Natty Dumas PAC of lumbar RFA Jul 2023. All questions answered. I have spent greater than 25 minutes on patient care today. Dr Moeller was available by phone for the evaluation of this patient. The time was used to review the medical records including relevant urine studies and Prescription history (MAPs), review of the available imaging, evaluation and examination of the patient, coordination of care with the medical staff and if applicable referring physicians, as well as creation of the medical record PQRS Narrative: Smoking Status Current every day smoker Hx Alcohol Use (MH) Yes Home Medications: Ambulatory Orders ALPRAZolam [Xanax] 2 mg PO TID PRN 12/19/14 Ammonium Lactate Cream [Ammonium Lactate] 1 applic TOPICAL DAILY 12/19/14 Aspirin 81 mg PO DAILY 12/19/14 Clobetasol Propionate/Emoll [Temovate Emollient 0.05% Crm] 1 applic TOPICAL DAILY 12/19/14 Clopidogrel [Plavix] 75 mg PO DAILY 12/19/14 Esomeprazole Magnesium [NexIUM] 40 mg PO DAILY 12/19/14 Ranolazine [Ranexa] 500 mg PO BID 12/19/14 Rosuvastatin Calcium [Crestor] 20 mg PO HS 12/19/14 Venlafaxine HCl ER [Effexor Xr] 150 mg PO DAILY 12/19/14 lamoTRIgine [LaMICtal] 200 mg PO DAILY 12/19/14 Celecoxib [CeleBREX] 200 mg PO DAILY 12/25/14 Nitroglycerin Sl Tabs [Nitrostat] 0.4 mg SUBLINGUAL DIRECTED PRN 01/10/15 Tamsulosin HCl [Flomax] 0.4 mg PO DAILY 01/30/15 Isosorbide Mononitrate [Isosorbide Mononitrate ER] 30 mg PO DAILY 11/05/21 Omeprazole 20 mg PO DAILY 11/05/21 carvediloL [Coreg] 6.25 mg PO QAM 11/05/21 carvediloL [Coreg] 12.5 mg PO HS 11/05/21 lisinopriL [Prinivil] 20 mg PO BID 11/05/21 traZODone HCL 150 mg PO HS 11/05/21 Naloxone HCl [Narcan] 4 mg NASAL ONCE PRN 365 Days #1 each 02/29/24 Diclofenac Epolamine [Diclofenac Epolamine 1.3% patch] 1 patch TRANSDERM DAILY 30 Days #30 patch 03/17/24 Diclofenac Sodium 50 mg PO BID 30 Days #60 tab 09/08/24 Orphenadrine [Norflex] 100 mg PO Q12H PRN 30 Days #60 tab 09/08/24 oxyCODONE HCL/ACETAMINOPHEN [Percocet 10-325 mg] 1 each PO QID PRN 30 Days #120 tab 01/09/25 oxyCODONE HCL/ACETAMINOPHEN [Percocet 10-325 mg] 1 tab PO Q6HR PRN 30 Days #120 tab 09/08/24 Controlled Substance Measures - Controlled Substance Measures Is patient prescribed a controlled substance at discharge?: Yes When asked, does pt state using other controlled substances?: Yes If prescribed controlled substance>3 days was MAPS reviewed?: Yes
== END ==
LOC: PNWHC3 14:22
PROVIDERS: ATTEND Specialist
DX: M54.17 Radiculopathy, lumbosacral region (principal); F17.210 Nicotine dependence, cigarettes, uncomplicated
CPT/HCPCS: 80307; G0463; 99212

== ENCOUNTER → 2024-11-03 | Outpatient (CLI) | payer MEDICARE ==
[2024-11-03 14:19] VITALS: RESP 16
[2024-11-03 14:37] VITALS: BP 147/80; PULSE 67; TEMP 97.1
--- NOTE | 2024-11-03 15:08 | P.PAINPG ---
Objective - Vital Signs Vital signs: Vital Signs Temp Pulse Resp 16 11/03/24 14:17 BP Pulse Ox FiO2 PQRS Measure Charge Sheet Mode of Arrival: Ambulatory Comment: HISTORY OF PRESENT ILLNESS: A 68 yr old male presents today with LBP> 1 yr secondary to spondylosis, disc bulges, neuroforaminal stenoses, radiculopathy, scoliosis and facet arthropathy for medication refills. Pt states his pain is at 8 /10 in intensity, predominantly axial, sharp/ stabbing in character, localized to the center with occasional radiation of pain to the BLEs. Pain is exacerbated with bending, standing, walking and laying supine. It is relieved with medications, injections, ice, heat, physical therapy on 09/21, massage that ended 09/21, chiropractic treatments weekly but ended in Oct 2023 due to a plateau in progress, use of a reclining chair, hot showers and rest. Interventional procedures include LESA L5-S1 (2014) Medications include Neurontin, Tyl, Excedrin, Voltaren gel REVIEW OF ORGAN SYSTEMS: CONSTITUTIONAL: No fevers or chills. No recent weight loss. HEENT: No visual acuity loss, eye pain, difficulties with hearing. No nosebleeds. No difficulty swallowing. RESPIRATORY: Denies any troubles with breathing or dyspnea on exertion. CARDIOVASCULAR: Denies any chest pain, palpitations, or recent heart attacks. GASTROINTESTINAL: Denies fatty food intolerance. Has change in bowel habits and gas bloat. GENITOURINARY: Denies any blood in urine. Has increased urinary frequency. NEUROLOGICAL: + numbness and tingling along the distal extremities. No seizure disorders or headaches. MUSCULOSKELETAL: + back pain SKIN: No skin cancer. No rash. PSYCHIATRIC: Denies current depression or suicidal thoughts. ENDOCRINE: Denies current thyroid disorders. Denies any b lood sugar glucose intolerance. HEME/LYMPHATIC: Denies any lumps and bumps around the neck. History of deep venous thrombosis. ALLERGY/IMMUNOLOGY: No immunoglobulin therapy. No immune deficiencies. BREAST: Denies current breast lumps, pain or nipple discharge. Physical Examinations : Constitutional : Cooperative , not in acute distress . Appears older than stated age. HEENT: Neck supple. No Lymphadenopathy. Normal thyroid size . Eyes no ptosis , no icterus, no photophobia . Hearing intact. Normal oropharynx. No Thrush. Respiratory : Chest clear to auscultations bilaterally. No wheezing. No rhonchi. Cardiovascular : Regular rate and rhythm , S1 / S2. No S3 . No S4. Gastrointestinal : Abdomen soft. No tenderness. Bowel sounds x 4. No organomegaly . Genitourinary : Deferred. Neurologic : Cranial nerve II to XII intact. No focal neurological deficits. Psychiatric : alert & oriented x 3. Matching mood & appropriate affect. Judgment & insight intact. Lymphatic No Lymphadenopathy. Musculoskeletal : Cervical Spine Motor strength in the deltoid and biceps: Normal right side. Normal Left side Motor strength biceps and the wrist extensors: Normal right side . Normal left side Motor strength in the triceps muscle: Normal right side. Normal left side Deep tendon reflexes: Normal at the biceps. Normal at Brachioradialis. Normal at triceps Cervical facet loading test: positive bilaterally Spurling test: positive bilaterally Neck distraction test: positive bilaterally Ibis sign: positive bilaterally Lumbar spine Motor strength lower extremities ,thigh and legs 5/5 Right side , 5/5 Left side Deep tendon reflexes : Normal Knee Jerk. Normal Ankle Jerk Vertebral body tenderness over L3, L4, L5, S1 Lumbar facet Loading Test: positive Right / positive Left Range of motion of the lumbar spine Flexion 45 degrees, extension 10 degrees Straight Leg Raise test: Left/ Right positive at 30 degrees Sharon test: positive right / positive left. Severe tenderness over the Sacroiliac joint on the Right / Left sides Gaenslen test: positive bilaterally Seated flexion test: positive bilaterally. Imaging: MRI non contrast of the lumbar spine without contrast from 06/29/23 reviewed. Assessment/ Plan : Lumbar radiculopathy Recommendation of medication management. Percocet 10/325mg #120, Diclofenac tabs 50mg #60, add Norflex 100gm #60 w 1 RF. Use, side effects, adverse reactions and safe storage discussed. UDS from 07/14/24 reviewed and consistent. Opiate/ narcotic agreement renewed 09/08/24. Admits to having Narcan in possession. Awaiting records from [facility] c/o Natty Dumas PAC of lumbar RFA Jul 2023. All questions answered. I have spent greater than 25 minutes on patient care today. Dr Moeller was available by phone for the evaluation of this patient. The time was used to review the medical records including relevant urine studies and Prescription history (MAPs), review of the available imaging, evaluation and examination of the patient, coordination of care with the medical staff and if applicable referring physicians, as well as creation of the medical record PQRS Narrative: Smoking Status Current every day smoker Scale Used Numeric (1 - 10) Hx Alcohol Use (MH) Yes Home Medications: Ambulatory Orders ALPRAZolam [Xanax] 2 mg PO TID PRN 12/19/14 Ammonium Lactate Cream [Ammonium Lactate] 1 applic TOPICAL DAILY 12/19/14 Aspirin 81 mg PO DAILY 12/19/14 Clobetasol Propionate/Emoll [Temovate Emollient 0.05% Crm] 1 applic TOPICAL DAILY 12/19/14 Clopidogrel [Plavix] 75 mg PO DAILY 12/19/14 Esomeprazole Magnesium [NexIUM] 40 mg PO DAILY 12/19/14 Ranolazine [Ranexa] 500 mg PO BID 12/19/14 Rosuvastatin Calcium [Crestor] 20 mg PO HS 12/19/14 Venlafaxine HCl ER [Effexor Xr] 150 mg PO DAILY 12/19/14 lamoTRIgine [LaMICtal] 200 mg PO DAILY 12/19/14 Celecoxib [CeleBREX] 200 mg PO DAILY 12/25/14 Nitroglycerin Sl Tabs [Nitrostat] 0.4 mg SUBLINGUAL DIRECTED PRN 01/10/15 Tamsulosin HCl [Flomax] 0.4 mg PO DAILY 01/30/15 Isosorbide Mononitrate [Isosorbide Mononitrate ER] 30 mg PO DAILY 11/05/21 Omeprazole 20 mg PO DAILY 11/05/21 carvediloL [Coreg] 6.25 mg PO QAM 11/05/21 carvediloL [Coreg] 12.5 mg PO HS 11/05/21 lisinopriL [Prinivil] 20 mg PO BID 11/05/21 traZODone HCL 150 mg PO HS 11/05/21 Naloxone HCl [Narcan] 4 mg NASAL ONCE PRN 365 Days #1 each 02/29/24 Diclofenac Epolamine [Diclofenac Epolamine 1.3% patch] 1 patch TRANSDERM DAILY 30 Days #30 patch 03/17/24 Diclofenac Sodium 50 mg PO BID 30 Days #60 tab 11/03/24 Orphenadrine [Norflex] 100 mg PO Q12H PRN 30 Days #60 tab 11/03/24 oxyCODONE HCL/ACETAMINOPHEN [Percocet 10-325 mg] 1 each PO QID PRN 30 Days #120 tab 11/03/24 oxyCODONE HCL/ACETAMINOPHEN [Percocet 10-325 mg] 1 tab PO Q6HR PRN 30 Days #120 tab 11/03/24 Controlled Substance Measures - Controlled Substance Measures Is patient prescribed a controlled substance at discharge?: Yes When asked, does pt state using other controlled substances?: Yes If prescribed controlled substance>3 days was MAPS reviewed?: Yes
== END ==
LOC: PNWHC3 14:14
PROVIDERS: ATTEND Specialist
DX: M54.16 Radiculopathy, lumbar region (principal); F17.210 Nicotine dependence, cigarettes, uncomplicated
CPT/HCPCS: 99211

== ENCOUNTER → 2025-01-05 | Outpatient (CLI) | payer MEDICARE ==
[2025-01-05 09:05] VITALS: BP 111/67; PULSE 64; RESP 18; TEMP 96.9
--- NOTE | 2025-01-05 14:50 | P.PAINPG ---
PQRS Measure Charge Sheet Comment: HISTORY OF PRESENT ILLNESS: A 69 yr old male presents today with LBP> 1 yr secondary to spondylosis, disc bulges, neuroforaminal stenoses, radiculopathy, scoliosis and facet arthropathy for medication refills. Pt states his pain is at 8 /10 in intensity, predominantly axial, sharp/ stabbing in character, localized to the center of the cervical and lumbar spine with occasional radiation of pain to the shoulders and BLEs. Pain is exacerbated with bending, standing, walking and laying supine. There is cervical crepitus. It is relieved with medications, injections, ice, heat, physical therapy on 09/21, massage that ended 09/21, chiropractic treatments weekly but ended in Oct 2023 due to a plateau in progress, use of a reclining chair, hot showers and rest. Interventional procedures include LESA L5-S1 (2014) Medications include Percocet 10/325mg #120, Diclofenac tabs 50mg #60, Norflex 100gm #60, Neurontin, Tyl, Excedrin, Voltaren gel REVIEW OF ORGAN SYSTEMS: CONSTITUTIONAL: No fevers or chills. No recent weight loss. HEENT: No visual acuity loss, eye pain, difficulties with hearing. No nosebleeds. No difficulty swallowing. RESPIRATORY: Denies any troubles with breathing or dyspnea on exertion. CARDIOVASCULAR: Denies any chest pain, palpitations, or recent heart attacks. GASTROINTESTINAL: Denies fatty food intolerance. Has change in bowel habits and gas bloat. GENITOURINARY: Denies any blood in urine. Has increased urinary frequency. NEUROLOGICAL: + numbness and tingling along the distal extremities. No seizure disorders or headaches. MUSCULOSKELETAL: + back pain SKIN: No skin cancer. No rash. PSYCHIATRIC: Denies current depression or suicidal thoughts. ENDOCRINE: Denies current thyroid disorders. Denies any blood sugar glucose intolerance. HEME/LYMPHATIC: Denies any lumps and bumps around the neck. History of deep venous thrombosis. ALLERGY/IMMUNOLOGY: No immunoglobulin therapy. No immune deficiencies. BREAST: Denies current breast lumps, pain or nipple discharge. Physical Examinations : Constitutional : Cooperative , not in acute distress . Appears older than stated age. HEENT: Neck supple. No Lymphadenopathy. Normal thyroid size . Eyes no ptosis , no icterus, no photophobia . Hearing intact. Normal oropharynx. No Thrush. Respiratory : Chest clear to auscultations bilaterally. No wheezing. No rhonchi. Cardiovascular : Regular rate and rhythm , S1 / S2. No S3 . No S4. Gastrointestinal : Abdomen soft. No tenderness. Bowel sounds x 4. No organomegaly . Genitourinary : Deferred. Neurologic : Cranial nerve II to XII intact. No focal neurological deficits. Psychiatric : alert & oriented x 3. Matching mood & appropriate affect. Judgment & insight intact. Lymphatic No Lymphadenopathy. Musculoskeletal : Cervical Spine Motor strength in the deltoid and biceps: Normal right side. Normal Left side Motor strength biceps and the wrist extensors: Normal right side . Normal left side Motor strength in the triceps muscle: Normal right side. Normal left side Deep tendon reflexes: Normal at the biceps. Normal at Brachioradialis. Normal at triceps Cervical facet loading test: positive bilaterally Spurling test: positive bilaterally Neck distraction test: positive bilaterally Ibis sign: positive bilaterally Lumbar spine Motor strength lower extremities ,thigh and legs 5/5 Right side , 5/5 Left side Deep tendon reflexes : Normal Knee Jerk. Normal Ankle Jerk Vertebral body tenderness over L3, L4, L5, S1 Lumbar facet Loading Test: positive Right / positive Left Range of motion of the lumbar spine Flexion 45 degrees, extension 10 degrees Straight Leg Raise test: Left/ Right positive at 30 degrees Sharon test: positive right / positive left. Severe tenderness over the Sacroiliac joint on the Right / Left sides Gaenslen test: positive bilaterally Seated flexion test: positive bilaterally. Imaging: MRI non contrast of the lumbar spine without contrast from 06/29/23 reviewed. Assessment/ Plan : Lumbar radiculopathy, Cervical radiculopathy Recommendation of medication management and cervical x-ray, PT x 6 wks M54.12. Percocet 10/325mg #120, Diclofenac tabs 50mg #60, Norflex 100gm #60 w 1 RF. Use, side effects, adverse reactions and safe storage discussed. UDS from 07/14/24 reviewed and consistent. Opiate/ narcotic agreement renewed 09/08/24. 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 Awaiting records from [facility] c/o Natty Dumas PAC of lumbar RFA Jul 2023. All questions answered. I have spent greater than 25 minutes on patient care today. Dr Moeller was available by phone for the evaluation of this patient. The time was used to review the medical records including relevant urine studies and Prescription history (MAPs), review of the available imaging, evaluation and examination of the patient, coordination of care with the medical staff and if applicable referring physicians, as well as creation of the medical record - Pain Location Back Non-Pharmacological Interventions: Position/Reposition PQRS Narrative: Smoking Status Current every day smoker Narcotic Agreement Date Signed 09/08/24 Hx Alcohol Use (MH) Yes Home Medications: Ambulatory Orders ALPRAZolam [Xanax] 2 mg PO TID PRN 12/19/14 Ammonium Lactate Cream [Ammonium Lactate] 1 applic TOPICAL DAILY 12/19/14 Aspirin 81 mg PO DAILY 12/19/14 Clobetasol Propionate/Emoll [Temovate Emollient 0.05% Crm] 1 applic TOPICAL DAILY 12/19/14 Clopidogrel [Plavix] 75 mg PO DAILY 12/19/14 Esomeprazole Magnesium [NexIUM] 40 mg PO DAILY 12/19/14 Ranolazine [Ranexa] 500 mg PO BID 12/19/14 Rosuvastatin Calcium [Crestor] 20 mg PO HS 12/19/14 Venlafaxine HCl ER [Effexor Xr] 150 mg PO DAILY 12/19/14 lamoTRIgine [LaMICtal] 200 mg PO DAILY 12/19/14 Celecoxib [CeleBREX] 200 mg PO DAILY 12/25/14 Nitroglycerin Sl Tabs [Nitrostat] 0.4 mg SUBLINGUAL DIRECTED PRN 01/10/15 Tamsulosin HCl [Flomax] 0.4 mg PO DAILY 01/30/15 Isosorbide Mononitrate [Isosorbide Mononitrate ER] 30 mg PO DAILY 11/05/21 Omeprazole 20 mg PO DAILY 11/05/21 carvediloL [Coreg] 6.25 mg PO QAM 11/05/21 carvediloL [Coreg] 12.5 mg PO HS 11/05/21 lisinopriL [Prinivil] 20 mg PO BID 11/05/21 traZODone HCL 150 mg PO HS 11/05/21 Naloxone HCl [Narcan] 4 mg NASAL ONCE PRN 365 Days #1 each 02/29/24 Diclofenac Epolamine [Diclofenac Epolamine 1.3% patch] 1 patch TRANSDERM DAILY 30 Days #30 patch 03/17/24 Diclofenac Sodium 50 mg PO BID 30 Days #60 tab 11/03/24 Orphenadrine [Norflex] 100 mg PO Q12H PRN 30 Days #60 tab 11/03/24 Celecoxib [CeleBREX] 100 mg PO BID 30 Days #60 cap 01/05/25 oxyCODONE HCL/ACETAMINOPHEN [Percocet 10-325 mg Tablet] 1 each PO QID PRN 30 Days #120 tab 01/05/25 oxyCODONE HCL/ACETAMINOPHEN [Percocet 10-325 mg] 1 tab PO QID PRN 30 Days #120 tab 01/05/25 Controlled Substance Measures - Controlled Substance Measures Is patient prescribed a controlled substance at discharge?: Yes When asked, does pt state using other controlled substances?: Yes If prescribed controlled substance>3 days was MAPS reviewed?: Yes
== END ==
LOC: PNWHC3 08:06
PROVIDERS: ATTEND Specialist
DX: M47.22 Other spondylosis with radiculopathy, cervical region (principal); M47.26 Other spondylosis with radiculopathy, lumbar region; F17.200 Nicotine dependence, unspecified, uncomplicated
CPT/HCPCS: 99211

== ENCOUNTER → 2025-02-03 | Outpatient (CLI) | payer MEDICARE ==
--- NOTE | 2025-02-03 16:39 | MR ---
INDICATION: Patient age:Male; 69 years old; Reason for study: M54.12 RADICULOPATHY, CERVICAL REGION; [facility]. COMPARISON: MR T-spine/L-spine 08/07/2023, 02/06/2020, MR thoracic spine 08/18/2019, 02/25/2019, MR brain 08/19/2016. TECHNIQUE: Multi planar, multi sequence imaging was performed of the cervical spine. No Gadolinium wa s given. FINDINGS: Alignment: The cervical vertebral bodies have preserved heights. Alignment is within normal limits gi becca patient positioning. Bones: Multilevel anterior osteophytosis. Multilevel type I and type II Modic changes. Cord: The spinal cord is unremarkable with regards to their signal intensity and morphology. Discs: Multilevel disc desiccation is present. C2-C3: Broad-based disc bulge with no significant central canal stenosis. Uncovertebral joint hypertr ophy with mild right neural foraminal stenosis. The left neural foramen is patent. C3-C4: A disc osteophyte complex is present with mild spinal canal stenosis. Uncovertebral joint hyp ertrophy. Moderate left and mild right neural foraminal stenosis. C4-C5: Broad-based disc bulge without significant spinal canal stenosis. Uncovertebral joint hypertro phy. Mild right neural foraminal stenosis. The left neural foramen is patent. C5-C6: Posterior disc osteophyte complex resulting in mild spinal canal stenosis. Uncovertebral joint hypertrophy with moderate to severe bilateral neural foraminal stenosis. C6-C7: Broad-based disc bulge with mild effacement of the anterior thecal sac. No significant spinal canal stenosis. Uncovertebral joint hypertrophy. Mild bilateral neural foraminal stenosis. C7-T1: Broad-based disc bulge with mild effacement of the anterior thecal sac. No significant spinal canal stenosis. Uncovertebral joint hypertrophy. Moderate bilateral neural foraminal stenosis. Other: None. 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 No d isc herniation identified. [facility], , 02/03/2025 4:37 PM
== END | disposition home or self-care (01) ==
LOC: RADMRIMAIN 15:31
PROVIDERS: ATTEND Specialist
DX: M50.11 Cervical disc disorder with radiculopathy, high cervical region (principal); M47.22 Other spondylosis with radiculopathy, cervical region; M48.02 Spinal stenosis, cervical region; M99.71 Connective tissue and disc stenosis of intervertebral foramina of cervical region
CPT/HCPCS: 72141

== ENCOUNTER → 2025-03-01 | Outpatient (CLI) | payer MEDICARE ==
[2025-03-01 11:12] VITALS: BP 139/78; PULSE 54; RESP 16; TEMP 96.6
--- NOTE | 2025-03-01 16:12 | P.PAINPG ---
Objective - Vital Signs Vital signs: Vital Signs Temp 96.6 F L 03/01/25 11:05 Pulse 54 L 03/01/25 11:05 Resp 16 03/01/25 11:05 BP 139/78 03/01/25 11:05 Pulse Ox 97 03/01/25 11:05 FiO2 Intake & Output 02/28/25 03/01/25 03/01/25 18:59 06:59 18:59 Weight 56.245 kg PQRS Measure Charge Sheet Mode of Arrival: Ambulatory Comment: HISTORY OF PRESENT ILLNESS: A 69 yr old male presents today with LBP> 1 yr secondary to spondylosis, disc bulges, neuroforaminal stenoses, radiculopathy, scoliosis and facet arthropathy for medication refills. Pt states his pain is at 6 /10 in intensity, predominantly axial, sharp/ stabbing in character, localized to the center of the cervical and lumbar spine with occasional radiation of pain to the LLE. Pain is exacerbated with bending, standing, walking and laying supine. It is relieved with medications, injections, ice, heat, physical therapy on 09/21, massage that ended 09/21, chiropractic treatments weekly but ended in Oct 2023 due to a plateau in progress, use of a reclining chair, hot showers and rest. Interventional procedures include LESA L5-S1 (2014) Medications include Percocet 10/325mg #120, Diclofenac tabs 50mg #60, Norflex 100gm #60, Neurontin, Tyl, Excedrin, Voltaren gel REVIEW OF ORGAN SYSTEMS: CONSTITUTIONAL: No fevers or chills. No recent weight loss. HEENT: No visual acuity loss, eye pain, difficulties with hearing. No nosebleeds. No difficulty swallowing. RESPIRATORY: Denies any troubles with breathing or dyspnea on exertion. CARDIOVASCULAR: Denies any chest pain, palpitations, or recent heart attacks. GASTROINTESTINAL: Denies fatty food intolerance. Has change in bowel habits and gas bloat. GENITOURINARY: Denies any blood in urine. Has increased urinary frequency. NEUROLOGICAL: + numbness and tingling along the distal extremities. No seizure disorders or headaches. MUSCULOSKELETAL: + back pain SKIN: No skin cancer. No rash. PSYCHIATRIC: Denies current depression or suicidal thoughts. ENDOCRINE: Denies current thyroid disorders. Denies any blood sugar glucose intolerance. HEME/LYMPHATIC: Denies any lumps and bumps around the neck. History of deep venous thrombosis. ALLERGY/IMMUNOLOGY: No immunoglobulin therapy. No immune deficiencies. BREAST: Denies current breast lumps, pain or nipple discharge. Physical Examinations : Constitutional : Cooperative , not in acute distress . Appears older than stated age. HEENT: Neck supple. No Lymphadenopathy. Normal thyroid size . Eyes no ptosis , no icterus, no photophobia . Hearing intact. Normal oropharynx. N o Thrush. Respiratory : Chest clear to auscultations bilaterally. No wheezing. No rhonchi. Cardiovascular : Regular rate and rhythm , S1 / S2. No S3 . No S4. Gastrointestinal : Abdomen soft. No tenderness. Bowel sounds x 4. No organomegaly . Genitourinary : Deferred. Neurologic : Cranial nerve II to XII intact. No focal neurological deficits. Psychiatric : alert & oriented x 3. Matching mood & appropriate affect. Judgment & insight intact. Lymphatic No Lymphadenopathy. Musculoskeletal : Cervical Spine +crepitus w rotation Motor strength in the deltoid and biceps: Normal right side. Normal Left side Motor strength biceps and the wrist extensors: Normal right side . Normal left side Motor strength in the triceps muscle: Normal right side. Normal left side Deep tendon reflexes: Normal at the biceps. Normal at Brachioradialis. Normal at triceps Cervical facet loading test: positive bilaterally Spurling test: positive bilaterally Neck distraction test: positive bilaterally Ibis sign: positive bilaterally Lumbar spine Motor strength lower extremities ,thigh and legs 5/5 Right side , 5/5 Left side Deep tendon reflexes : Normal Knee Jerk. Normal Ankle Jerk Vertebral body tenderness over L3, L4, L5, S1 Lumbar facet Loading Test: positive Right / positive Left Range of motion of the lumbar spine Flexion 45 degrees, extension 10 degrees Straight Leg Raise test: Left/ Right positive at 30 degrees Sharon test: positive right / positive left. Severe tenderness over the Sacroiliac joint on the Right / Left sides Gaenslen test: positive bilaterally Seated flexion test: positive bilaterally. Imaging: MRI non contrast of the lumbar spine without contrast from 06/29/23 reviewed. Assessment/ Plan : Lumbar radiculopathy, Cervical radiculopathy Recommendation of medication management and PT x 6 wks M54.12, M54.16. Will complete cervical x ray today. Percocet 10/325mg #120, Norflex 100gm #60 w RF. Use, side effects, adverse reactions and safe storage discussed. UDS from 07/14/24 reviewed and consistent. Opiate/ narcotic agreement renewed 09/08/24. 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 All questions answered. I have spent greater than 25 minutes on patient care today. Dr Moeller was available by phone for the evaluation of this patient. The time was used to review the medical records including relevant urine studies and Prescription history (MAPs), review of the available imaging, evaluation and examination of the patient, coordination of care with the medical staff and if applicable referring physicians, as well as creation of the medical record - Pain Location Bilateral Lower Back Non-Pharmacological Interventions: Heat, Ice, Inactivity, Physical Therapy, Position/Reposition, Sitting Pharmacological Interventions: Block, PRN Medication, Scheduled Medication, Topical Medication PQRS Narrative: Smoking Status Current every day smoker Narcotic Agreement Date Signed 09/08/24 Blood Pressure 139/78 Pain Intensity [Bilateral 6 Lower Back] Scale Used Numeric (1 - 10) Hx Alcohol Use (MH) Yes Home Medications: Ambulatory Orders ALPRAZolam [Xanax] 2 mg PO TID PRN 12/19/14 Ammonium Lactate Cream [Ammonium Lactate] 1 applic TOPICAL DAILY 12/19/14 Aspirin 81 mg PO DAILY 12/19/14 Clobetasol Propionate/Emoll [Temovate Emollient 0.05% Crm] 1 applic TOPICAL DAILY 12/19/14 Clopidogrel [Plavix] 75 mg PO DAILY 12/19/14 Esomeprazole Magnesium [NexIUM] 40 mg PO DAILY 12/19/14 Ranolazine [Ranexa] 500 mg PO BID 12/19/14 Rosuvastatin Calcium [Crestor] 20 mg PO HS 12/19/14 Venlafaxine HCl ER [Effexor Xr] 150 mg PO DAILY 12/19/14 lamoTRIgine [LaMICtal] 200 mg PO DAILY 12/19/14 Nitroglycerin Sl Tabs [Nitrostat] 0.4 mg SUBLINGUAL DIRECTED PRN 01/10/15 Tamsulosin HCl [Flomax] 0.4 mg PO DAILY 01/30/15 Isosorbide Mononitrate [Isosorbide Mononitrate ER] 30 mg PO DAILY 11/05/21 Omeprazole 20 mg PO DAILY 11/05/21 carvediloL [Coreg] 6.25 mg PO QAM 11/05/21 carvediloL [Coreg] 12.5 mg PO HS 11/05/21 lisinopriL [Prinivil] 20 mg PO BID 11/05/21 traZODone HCL 150 mg PO HS 11/05/21 Naloxone HCl [Narcan] 4 mg NASAL ONCE PRN 365 Days #1 each 02/29/24 Diclofenac Epolamine [Diclofenac Epolamine 1.3% patch] 1 patch TRANSDERM DAILY 30 Days #30 patch 03/17/24 Diclofenac Sodium 50 mg PO BID 30 Days #60 tab 11/03/24 Orphenadrine [Norflex] 100 mg PO Q12H PRN 30 Days #60 tab 03/01/25 oxyCODONE HCL/ACETAMINOPHEN [Percocet 10-325 mg] 1 each PO QID PRN 30 Days #120 tab 03/01/25 oxyCODONE HCL/ACETAMINOPHEN [Percocet 10-325 mg] 1 tab PO QID PRN 30 Days #120 tab 03/01/25 Controlled Substance Measures - Controlled Substance Measures Is patient prescribed a controlled substance at discharge?: Yes When asked, does pt state using other controlled substances?: No If prescribed controlled substance>3 days was MAPS reviewed?: Yes
== END ==
LOC: PNWHC3 10:53
PROVIDERS: ATTEND Specialist
DX: M47.26 Other spondylosis with radiculopathy, lumbar region (principal); M47.22 Other spondylosis with radiculopathy, cervical region; F17.200 Nicotine dependence, unspecified, uncomplicated
CPT/HCPCS: 99211